=== PATIENT | male | born 1990 | race Caucasian/White ===

== ENCOUNTER 2018-01-22 07:03 | Emergency (ER) | payer SELFPAY ==
[2018-01-22 07:59] LABS: Absolute Lymphocytes (CBC) 2.3 K/uL (0.7-4.9); Absolute Monocytes 0.5 K/uL (0.1-1.3); Absolute Neutrophil 3.3 K/uL (1.8-8.0); Basophils % 0.5 % (0-1.3); Eosinophils % 2.8 % (0-4.4); Hematocrit 44.8 % (39.6-49.0); MCH 28.9 pg (27.0-35.0); MCV 85.8 fL (80-100); MPV 7.6 fL (7.6-11.3); RBC Red Blood Cell Count 5.22 M/uL (4.33-5.43)
[2018-01-22 08:08] LABS: BUN Blood Urea Nitrogen 16 mg/dL (6-20); Bicarbonate 29 mEq/L (21-31); Glucose Level 105 mg/dL (65-120); Potassium 3.7 mEq/L (3.6-5.0); Sodium Level 141 mEq/L (135-145)
--- NOTE | 2018-01-22 08:24 | RAD REPORT ---
EXAM DESCRIPTION: Noah Benitez (2 Views)01/22/2018 8:14 am CLINICAL HISTORY: Cough COMPARISON: 2009 FINDINGS: The lungs appear clear of acute infiltrate. The heart is normal size. Mild pleural thicke eleuterio may be present on the lateral view IMPRESSION: No acute abnormalities displayed
--- NOTE | 2018-01-22 08:27 | EDPHYS ---
Physician Documentation [facility] Name: Nain Caballero Age: 28 yrs Sex: Male : 1990 Arrival Date: 01/22/2018 Time: 07:07 Bed 5 Private MD: ED Physician Jose Chen HPI: 01/22 07:33 This 28 yrs old Male presents to ER via Wheelchair with complaints of Chest rn Pain. 07:33 The patient or guardian reports chest pain that is located primarily in the anterior rn chest wall. The patient or guardian reports chest pain that is located primarily in the anterior chest wall, right. The pain does not radiate. The chest pain is described as sharp, stabbing. Duration: The patient or guardian reports a single episode, that is still ongoing. Severity of pain: At its worst the pain was mild in the emergency department the pain is unchanged. The patient has experienced a previous episode. The patient has not recently seen a physician. Reports chest pain, right sided, non-radiating, no fever/cough/sob, reports constant for 1 week, similar symptoms in past, was a spontaneous pneumothorax, required a chest tube, states not getting better so came in for eval.. Historical: - Allergies: 07:32 Clindamycin; iw - Home Meds: 07:32 None [Active]; iw - PMHx: 07:32 Pneumothorax; iw - PSHx: 07:32 right wrist surgery; iw - Immunization history:: Adult Immunizations. - Family history:: not pertinent. - Social history:: Smoking status: Patient/guardian denies using tobacco. - Hospitalizations: : No recent hospitalization is reported. ROS: 07:34 Constitutional: Negative for fever, chills, and weight loss, Eyes: Negative for injury, rn pain, redness, and discharge, Neck: Negative for injury, pain, and swelling, Cardiovascular: Negative for palpitations, and edema, Respiratory: Negative for shortness of breath, cough, wheezing Abdomen/GI: Negative for abdominal pain, nausea, vomiting, diarrhea, and constipation, Back: Negative for injury and pain, MS/Extremity: Negative for injury and deformity, Skin: Negative for injury, rash, and discoloration, Neuro: Negative for headache, weakness, numbness, tingling, and seizure. Exam: 07:34 Constitutional: This is a well developed, well nourished patient who is awake, alert, rn and in no acute distress. Head/Face: Normocephalic, atraumatic. Neck: Trachea midline, no thyromegaly or masses palpated, and no cervical lymphadenopathy. Supple, full range of motion without nuchal rigidity, or vertebral point tenderness. No Meningismus. Cardiovascular: Regular rate and rhythm with a normal S1 and S2. No gallops, murmurs, or rubs. Normal PMI, no JVD. No pulse deficits. Respiratory: Lungs have equal breath sounds bilaterally, clear to auscultation and percussion. No rales, rhonchi or wheezes noted. No increased work of breathing, no retractions or nasal flaring. Abdomen/GI: Soft, non-tender, with normal bowel sounds. No distension or tympany. No guarding or rebound. No evidence of tenderness throughout. MS/ Extremity: Pulses equal, no cyanosis. Neurovascular intact. Full, normal range of motion. Equal circumference. Neuro: Awake and alert, GCS 15, oriented to person, place, time, and situation. Cranial nerves II-XII grossly intact. Motor strength 5/5 in all extremities. Sensory grossly intact. Cerebellar exam normal. Normal gait. Vital Signs: 07:33 BP 138 / 92; Pulse 86; Resp 18 S; Temp 98.2; Pulse Ox 99% on R/A; Weight 102.06 kg; iw Height 6 ft. 1 in. (185.42 cm); Pain 7/10; 08:45 BP 127 / 89; Pulse 81; Resp 18; Temp 97.9; Pulse Ox 98% on R/A; ph 07:33 Body Mass Index 29.68 (102.06 kg, 185.42 cm) iw MDM: 07:27 Patient medically screened. rn 08:26 Differential diagnosis: acute pericarditis, anxiety, chest wall pain, costochondritis, rn gastroesophageal reflux disease (GERD), pericarditis, pleurisy, pneumothorax. Data reviewed: vital signs, nurses notes, lab test result(s), EKG, radiologic studies, plain films, and as a result, I will discharge patient. Counseling: I had a detailed discussion with the patient and/or guardian regarding: the historical points, exam findings, and any diagnostic results supporting the discharge/admit diagnosis, lab results, radiology results, the need for outpatient follow up, to return to the emergency department if symptoms worsen or persist or if there are any questions or concerns that arise at home. Special discussion: Based on the patient's history, exam, and Dx evaluation, there is no indication for emergent intervention or inpatient Tx. It is understood by the patient/guardian that if the Sx's persist or worsen they need to return immediately for re-evaluation. I discussed with the patient/guardian in detail that at this point there is no indication for admission to the hospital. It is understood, however, that if the symptoms persist or worsen the patient needs to return immediately for re-evaluation. 01/22 07:32 Order name: Basic Metabolic Panel; Complete Time: 08:18 rn 01/22 07:32 Order name: CBC with Diff; Complete Time: 08:18 rn 01/22 07:32 Order name: Troponin (emerg Dept Use Only); Complete Time: 08:18 rn 01/22 07:32 Order name: EKG; Complete Time: 07:33 rn 01/22 07:32 Order name: Cardiac monitoring; Complete Time: 08: rn 01/22 07:32 Order name: XRAY Chest Pa And Lat (2 Views); Complete Time: 08:25 rn 01/22 07:32 Order name: EKG - Nurse/Tech; Complete Time: 08: rn 01/22 07:32 Order name: IV Saline Lock; Complete Time: 08: rn 01/22 07:32 Order name: Labs collected and sent; Complete Time: 08: rn 01/22 07:32 Order name: O2 Per Protocol; Complete Time: 08: rn 01/22 07:32 Order name: O2 Sat Monitoring; Complete Time: 08:09 rn Administered Medications: No medications were administered Disposition: 01/22/18 08:27 Discharged to Home. Impression: Chest pain, unspecified. - Condition is Stable. - Discharge Instructions: Nonspecific Chest Pain. - Work release form, Medication Reconciliation Form, Thank You Letter, Antibiotic Education, Prescription Opioid Use form. - Follow up: Private Physician; When: As needed; Reason: Recheck today's complaints, Re-evaluation by your physician. - Problem is new. - Symptoms have improved. Signatures: Dispatcher [employer] Kia Mackey RN RN iw Nieto, Roman, MD MD rn Hall, Patricia, RN RN ph Corrections: (The following items were deleted from the chart) 09:09 08:27 01/22/2018 08:27 Discharged to Home. Impression: Chest pain, unspecified. ph Condition is Stable. Forms are Medication Reconciliation Form, Thank You Letter, Antibiotic Education, Prescription Opioid Use. Follow up: Private Physician; When: As needed; Reason: Recheck today's complaints, Re-evaluation by your physician. Problem is new. Symptoms have improved. rn
--- NOTE | 2018-01-22 08:27 | ER ---
Nurse's Notes [facility] Name: Nain Caballero Age: 28 yrs Sex: Male : 1990 Arrival Date: 01/22/2018 Time: 07:07 Bed 5 Private MD: Diagnosis: Chest pain, unspecified Presentation: 01/22 07:31 Presenting complaint: Patient states: has had right sided chest pain X 1 week, iw described as sharp, hx of left sided pneumothorax, also c/o mild SOB and cough, pain is aggravated by movement. Transition of care: patient was not received from another setting of care. Onset of symptoms was January 22, 2018. Initial Sepsis Screen: Does the patient meet any 2 criteria? No. Patient's initial sepsis screen is negative. Does the patient have a suspected source of infection? No. Patient's initial sepsis screen is negative. Care prior to arrival: None. 07:31 Method Of Arrival: Wheelchair iw 07:31 Acuity: SRAVAN 3 iw Historical: - Allergies: 07:32 Clindamycin; iw - Home Meds: 07:32 None [Active]; iw - PMHx: 07:32 Pneumothorax; iw - PSHx: 07:32 right wrist surgery; iw - Immunization history:: Adult Immunizations. - Family history:: not pertinent. - Social history:: Smoking status: Patient/guardian denies using tobacco. - Hospitalizations: : No recent hospitalization is reported. Screenin:58 Abuse screen: Denies threats or abuse. Denies injuries from another. Nutritional ph screening: No deficits noted. Tuberculosis screening: No symptoms or risk factors identified. Fall Risk None identified. Assessment: 07:45 General: Appears in no apparent distress. comfortable, slender, well groomed, Behavior ph is calm, cooperative, appropriate for age, Denies fever, feeling ill. Pain: Complains of pain in anterior aspect of right upper chest and right breast Pain does not radiate. Quality of pain is described as sharp, stabbing, Pain began 1 week ago. Neuro: Level of Consciousness is awake, alert, obeys commands, Oriented to person, place, time, situation. 07:45 Cardiovascular: Reports chest pain, shortness of breath, Denies nausea, vomiting, Chest ph pain quality is sharp, stabbing, is located in right anterior chest wall is aggravated by breathing. Respiratory: Reports shortness of breath pain with movement pain with respiration. GI: No signs and/or symptoms were reported involving the gastrointestinal system. Derm: Skin is intact, is healthy with good turgor, Skin is pink, warm \T\ dry. Musculoskeletal: Circulation, motion, and sensation intact. Range of motion: intact in all extremities. 09:05 Reassessment: Patient appears in no apparent distress at this time. Patient and/or ph family updated on plan of care and expected duration. Pain level reassessed. Patient is alert, oriented x 3, equal unlabored respirations, skin warm/dry/pink. Pt given work note and discharged home. Vital Signs: 07:33 BP 138 / 92; Pulse 86; Resp 18 S; Temp 98.2; Pulse Ox 99% on R/A; Weight 102.06 kg; iw Height 6 ft. 1 in. (185.42 cm); Pain 7/10; 08:45 BP 127 / 89; Pulse 81; Resp 18; Temp 97.9; Pulse Ox 98% on R/A; ph 07:33 Body Mass Index 29.68 (102.06 kg, 185.42 cm) iw ED Course: 07:07 Patient arrived in ED. mr 07:27 Jose Chen MD is Attending Physician. rn 07:30 Inserted saline lock: 20 gauge in right antecubital area, using aseptic technique. ag Blood collected. 07:32 Triage completed. iw 07:58 Lizette Funk, RN is Primary Nurse. ph 08:04 Patient moved to radiology via wheelchair. jb2 08:07 EKG done, by mental health tech. reviewed by Jose Chen MD. tc 08:09 Arm band placed on. ph 08:10 Patient has correct armband on for positive identification. Placed in gown. Bed in low ph position. Call light in reach. Side rails up X 1. court monitor on. Pulse ox on. NIBP on. Warm blanket given. 08:11 X-ray completed. Patient tolerated procedure well. Patient moved back from radiology. jb2 08:12 XRAY Chest Pa And Lat (2 Views) In Process Unspecified. EDMS 08:15 Patient maintains SpO2 saturation greater than 95% on room air. ph 09:08 No provider procedures requiring assistance completed. IV discontinued, intact, ph bleeding controlled, No redness/swelling at site. Pressure dressing applied. Administered Medications: No medications were administered Outcome: : Discharge ordered by . rn 09:08 Discharged to home ambulatory. ph : Condition: good :08 Discharge instructions given to patient, Instructed on discharge instructions, follow up and referral plans. Demonstrated understanding of instructions, follow-up care. 09: Patient left the ED. ph Signatures: Dispatcher [employer] EDUT Kennedi Leon, Andrea jb2 Kia Lewis, Jose Mccormick RN, MD MD rn Callis, Tiffany, gunstock spray unit feeder EKG Ttc Kristan Hutchins Patricia, RN RN ph Corrections: (The following items were deleted from the chart) 09:11 09:11 BP 127 / 89; Pulse 81bpm; Resp 18bpm; Pulse Ox 98% RA; Temp 97.9F; ph ph
--- NOTE | 2018-01-22 13:28 | EKG ---
Test Date: 2018-01-22 Test Time: 07:59:11 Hearth Feeder: RYAN MEASUREMENT RESULTS: Intervals: Rate: 71 NE: 152 QRSD: 86 QT: 370 QTc: 402 [place]: P: 34 NE: 152 QRS: 83 T: 60 INTERPRETIVE STATEMENTS: Normal sinus rhythm Normal ECG Compared to ECG 11/11/2009 11:07:27 Right-axis deviation no longer present Electronically Signed On 01-22-18 13:27:58 CDT by Ryan Walters
== END 2018-01-22 09:09 | disposition home or self-care (01) ==
LOC: ER 07:03
DX: R07.9 Chest pain, unspecified (principal); Z88.3 Allergy status to other anti-infective agents
CPT/HCPCS: 36415; 71046; 80048; 84484; 85025; 93005; 99285

== ENCOUNTER 2018-11-04 21:06 | Emergency (ER) | payer SELFPAY ==
[2018-11-04] MEDS ORDERED: AMOX/K CLAV 875 MG TAB ONE (21:54)
[2018-11-04] MEDS ORDERED: HYDROCODONE/APAP 5/325 MG TAB ONE (21:54)
--- NOTE | 2018-11-04 22:04 | ER ---
Nurse's Notes [facility] Name: Nain Caballero Age: 28 yrs Sex: Male : 1990 Arrival Date: 11/04/2018 Time: 21:07 Bed 5 Private MD: Diagnosis: Cracked tooth-Pain, right upper molar Presentation: 11/04 21:18 Presenting complaint: Patient states: I broke a tooth on the upper right about 2 weeks la1 ago and it just started hurting on . I have plans to go see a dentist but I cant take the pain, pt reports taking ibuprofen and acetaminophen at home without relieft. Transition of care: patient was not received from another setting of care. Onset of symptoms was November 04, 2018. Risk Assessment: Do you want to hurt yourself or someone else? Patient reports no desire to harm self or others. Initial Sepsis Screen: Does the patient meet any 2 criteria? No. Patient's initial sepsis screen is negative. Does the patient have a suspected source of infection? No. Patient's initial sepsis screen is negative. Care prior to arrival: None. 21:18 Method Of Arrival: Ambulatory la1 21:18 Acuity: SRAVAN 5 la1 Historical: - Allergies: 21:20 Clindamycin; la1 - PMHx: 21:20 Pneumothorax; la1 - Immunization history:: Adult Immunizations up to date. - Social history:: Smoking status: Patient/guardian denies using tobacco, but has a distant history of tobacco abuse. - Ebola Screening: : No symptoms or risks identified at this time. Screenin:34 Abuse screen: Denies threats or abuse. Denies injuries from another. Nutritional tl1 screening: No deficits noted. Tuberculosis screening: No symptoms or risk factors identified. Fall Risk None identified. Assessment: 21:32 General: Appears uncomfortable, Behavior is calm, cooperative, appropriate for age. tl1 Pain: Complains of pain in upper right second molar Pain currently is 10 out of 10 on a pain scale. Quality of pain is described as aching, sharp, throbbing. Neuro: Level of Consciousness is awake, alert, obeys commands, Oriented to person, place, time, situation. Cardiovascular: No deficits noted. Respiratory: Airway is patent Trachea midline Respiratory effort is even, unlabored, Breath sounds are clear bilaterally. GI: No signs and/or symptoms were reported involving the gastrointestinal system. : No signs and/or symptoms were reported regarding the genitourinary system. EENT: Poor dentition noted. Dental caries noted in upper right second molar (#2) Reports pain in upper right second molar. Derm: No signs and/or symptoms reported regarding the dermatologic system. Musculoskeletal: No signs and/or symptoms reported regarding the musculoskeletal system. Vital Signs: 21:20 BP 118 / 86; Pulse 90; Resp 18; Temp 97.6; Pulse Ox 98% on R/A; Weight 104.33 kg; la1 Height 6 ft. 1 in. (185.42 cm); 21:20 Body Mass Index 30.34 (104.33 kg, 185.42 cm) la1 ED Course: 21:07 Patient arrived in ED. am2 21:19 Triage completed. la1 21:20 Arm band placed on left wrist. la1 21:20 Patient has correct armband on for positive identification. Call light in reach. Side tl1 rails up X 1. 21:23 Elias Giron PA is PHCP. cp 21:23 Elias Jackson MD is Attending Physician. cp 21:41 Latricia Garnett RN is Primary Nurse. tl1 22:02 Jony Brewer DDS is Referral Physician. cp 22:15 No provider procedures requiring assistance completed. Patient did not have IV access tl1 during this emergency room visit. Administered Medications: 21:44 Drug: HYDROcodone-acetaminophen 5 mg-325 mg 1 tabs Route: PO; tl1 22:15 Follow up: Response: No adverse reaction; No change in condition tl1 21:44 Drug: Augmentin 875 mg Route: PO; tl1 22:15 Follow up: Response: No adverse reaction; No change in condition tl1 Outcome: 22:03 Discharge ordered by . cp 22:15 Discharged to home ambulatory. tl1 22:15 Condition: good 22:15 Discharge instructions given to patient, Instructed on discharge instructions, follow up and referral plans. medication usage, Demonstrated understanding of instructions, follow-up care, medications, Prescriptions given X 3. 22:16 Patient left the ED. tl1 Signatures: Roosevelt Mosquera RN RN la1 Latricia Garnett RN RN tl1 Page, Elias, PA PA cp Motley, Brenda am2
--- NOTE | 2018-11-04 22:04 | EDPHYS ---
Physician Documentation [facility] Name: Nain Caballero Age: 28 yrs Sex: Male : 1990 Arrival Date: 11/04/2018 Time: 21:07 Bed 5 Private MD: ED Physician Elias Jackson HPI: 11/04 21:40 This 28 yrs old Male presents to ER via Ambulatory with complaints of cp Toothache. 21:40 The patient presents with broken tooth/teeth, pain. The problem is located in the upper cp right second molar (#2). Onset: The symptoms/episode began/occurred 2 day(s) ago. 21:40 Duration: The symptoms are continuous, and are steadily getting worse. cp 21:40 Associated signs and symptoms: Pertinent negatives: chills, dysphagia, fever, inability cp to eat, swelling, facial. Historical: - Allergies: 21:20 Clindamycin; la1 - PMHx: 21:20 Pneumothorax; la1 - Immunization history:: Adult Immunizations up to date. - Social history:: Smoking status: Patient/guardian denies using tobacco, but has a distant history of tobacco abuse. - Ebola Screening: : No symptoms or risks identified at this time. ROS: 21:45 Constitutional: Negative for body aches, chills, fever, poor PO intake. cp 21:45 Eyes: Negative for injury, pain, redness, and discharge. cp 21:45 ENT: Positive for dental pain, Negative for drainage from ear(s), ear pain, sore throat, difficulty swallowing, difficulty handling secretions. 21:45 Cardiovascular: Negative for chest pain. 21:45 Respiratory: Negative for cough, wheezing. 21:45 Abdomen/GI: Negative for abdominal pain, nausea, vomiting, and diarrhea. 21:45 Skin: Negative for cellulitis, rash. 21:45 Neuro: Negative for headache. 21:45 All other systems are negative. Exam: 21:50 Constitutional: The patient appears in no acute distress, alert, awake, non-toxic, well cp developed, well nourished. 21:50 Head/Face: Normocephalic, atraumatic. cp 21:50 Eyes: Periorbital structures: appear normal, Conjunctiva: normal, no exudate, no injection, Sclera: no appreciated abnormality, Lids and lashes: appear normal, bilaterally. 21:50 ENT: External ear(s): are unremarkable, Ear canal(s): are normal, clear, TM's: bulging, is not appreciated, bilaterally, dullness, bilaterally, erythema, is not appreciated, bilaterally, Nose: is normal, Mouth: Lips: moist, Oral mucosa: pink and intact, moist, Gums: normal with healthy appearance, Tongue: is normal, abscess, is not appreciated, Posterior pharynx: Airway: no evidence of obstruction, patent, Tonsils: are normal in appearance, swelling, is not appreciated, erythema, is not appreciated, exudate, is not appreciated, Dental exam: dental caries, that is mild, diffusely, fractured teeth are noted, specifically the upper right second molar (#2), pain, that is moderate, specifically in the upper right second molar (#2), Voice: is normal. 21:50 Neck: Lymph nodes: no appreciated lymphadenopathy. 21:50 Chest/axilla: Inspection: normal. 21:50 Cardiovascular: Rate: normal. 21:50 Respiratory: the patient does not display signs of respiratory distress, Respirations: normal, no use of accessory muscles, no retractions, no splinting, no tachypnea, labored breathing, is not present. 21:50 Abdomen/GI: Exam negative for discomfort, distension, guarding, Inspection: abdomen appears normal. 21:50 Skin: cellulitis, is not appreciated, no rash present. Vital Signs: 21:20 BP 118 / 86; Pulse 90; Resp 18; Temp 97.6; Pulse Ox 98% on R/A; Weight 104.33 kg; la1 Height 6 ft. 1 in. (185.42 cm); 21:20 Body Mass Index 30.34 (104.33 kg, 185.42 cm) la1 MDM: 21:23 Patient medically screened. cp 21:45 Differential diagnosis: dental caries, gingivitis, dental abscess, pericoronitis. cp 22:00 Data reviewed: vital signs, nurses notes, and as a result, I will discharge patient. cp 22:00 Counseling: I had a detailed discussion with the patient and/or guardian regarding: the cp historical points, exam findings, and any diagnostic results supporting the discharge/admit diagnosis, the need for outpatient follow up, for definitive care, a dentist, to return to the emergency department if symptoms worsen or persist or if there are any questions or concerns that arise at home. Administered Medications: 21:44 Drug: HYDROcodone-acetaminophen 5 mg-325 mg 1 tabs Route: PO; tl1 22:15 Follow up: Response: No adverse reaction; No change in condition tl1 21:44 Drug: Augmentin 875 mg Route: PO; tl1 22:15 Follow up: Response: No adverse reaction; No change in condition tl1 Disposition: 11/04/18 22:03 Discharged to Home. Impression: Cracked tooth - Pain, right upper molar. - Condition is Stable. - Discharge Instructions: Dental Pain, Diet and Dental Disease. - Prescriptions for Amoxicillin 875 mg Oral Tablet - take 1 tablet by ORAL route every 12 hours for 10 days; 20 tablet. Ibuprofen 800 mg Oral Tablet - take 1 tablet by ORAL route every 8 hours As needed take with food; 30 tablet. Tramadol 50 mg Oral Tablet - take 1 tablet by ORAL route every 8 hours as needed; 12 tablet. - Work release form, Medication Reconciliation Form, Thank You Letter, Antibiotic Education, Prescription Opioid Use form. - Follow up: Jony Brewer DDS; When: 2 - 3 days; Reason: Recheck today's complaints. - Problem is new. - Symptoms have improved. Addendum: 11/07/2018 11:23 Co-signature as Attending Physician, Elias Jackson MD I agree with the assessment and c garay plan of care. Signatures: Elias Jackson MD MD cha Attema, Lee RN RN la1 Latricia Garnett RN RN tl1 Elias Giron PA PA cp Corrections: (The following items were deleted from the chart) 11/04 22:16 22:03 11/04/2018 22:03 Discharged to Home. Impression: Cracked tooth - Pain, right tl1 upper molar. Condition is Stable. Forms are Medication Reconciliation Form, Thank You Letter, Antibiotic Education, Prescription Opioid Use. Follow up: Jony Brewer; When: 2 - 3 days; Reason: Recheck today's complaints. Problem is new. Symptoms have improved. cp
== END 2018-11-04 22:16 | disposition home or self-care (01) ==
LOC: ER 21:06
DX: K03.81 Cracked tooth (principal); Z88.3 Allergy status to other anti-infective agents
CPT/HCPCS: 99283

== ENCOUNTER 2019-02-17 22:43 | Emergency (ER) | payer SELFPAY ==
[2019-02-18] MEDS ORDERED: IBUPROFEN 400 MG TAB ONE (01:25)
[2019-02-18] MEDS ORDERED: TETANUS & DIPHTHERIA TOX,ADULT 0.5 ML VIAL ONE (01:26)
--- NOTE | 2019-02-18 01:38 | ER ---
Nurse's Notes [facility] Name: Nain Caballero Age: 29 yrs Sex: Male : 1990 Arrival Date: 02/17/2019 Time: 22:44 Bed 20 Private MD: Diagnosis: Laceration without foreign body, right foot Presentation: 02/17 23:30 Presenting complaint: Patient states: "I was fishing and was walking in knee-deep water cc3 when I accidentally stepped on something sharp that caused laceration to my right foot" Patient has laceration to his right plantar area. Transition of care: patient was not received from another setting of care. Complicating Factors: There are no complicating factors for this patient. Onset of symptoms was February 17, 2019. Risk Assessment: Do you want to hurt yourself or someone else? Patient reports no desire to harm self or others. Initial Sepsis Screen: Does the patient meet any 2 criteria? No. Patient's initial sepsis screen is negative. Does the patient have a suspected source of infection? No. Patient's initial sepsis screen is negative. Care prior to arrival: None. 23:30 Method Of Arrival: Wheelchair cc3 23:30 Acuity: SRAVAN 4 cc3 Triage Assessment: 23:30 General: Appears in no apparent distress. uncomfortable, Behavior is calm, cooperative, cc3 appropriate for age. Pain: Complains of pain in right plantar area. EENT: No signs and/or symptoms were reported regarding the EENT system. Neuro: Level of Consciousness is awake, alert, obeys commands, Oriented to person, place, time, situation, Appropriate for age. Cardiovascular: Denies chest pain, Patient's skin is warm and dry. Respiratory: Airway is patent Respiratory effort is even, unlabored, Respiratory pattern is regular, symmetrical. GI: Abdomen is round. : No signs and/or symptoms were reported regarding the genitourinary system. Derm: laceration to right plantar area. Musculoskeletal: Circulation, motion, and sensation intact. Range of motion: limited in right foot. Injury Description: Laceration sustained to right plantar area. Historical: - Allergies: 23:30 Clindamycin; cc3 - PMHx: 23:30 Pneumothorax; cc3 - PSHx: 23:30 wrist surgeries; cc3 - Immunization history:: Adult Immunizations up to date. - Social history:: Smoking status: Patient/guardian denies using tobacco, never smoked. - Ebola Screening: : No symptoms or risks identified at this time. Screenin:30 Abuse screen: Denies threats or abuse. Denies injuries from another. Nutritional cc3 screening: No deficits noted. Tuberculosis screening: No symptoms or risk factors identified. Fall Risk Ambulatory Aid- None/Bed Rest/Nurse Assist (0 pts). Gait- Normal/Bed Rest/Wheelchair (0 pts) Mental Status- Oriented to own ability (0 pts). Assessment: 23:30 Injury Description: Laceration sustained to right heel area is superficial, 0.5 to 2.5 cc3 cm long, not bleeding. 02/18 00:12 Reassessment: Patient appears in no apparent distress at this time. Patient and/or cc3 family updated on plan of care and expected duration. Pain level reassessed. Patient is alert, oriented x 3, equal unlabored respirations, skin warm/dry/pink. 01:25 Reassessment: Patient appears in no apparent distress at this time. Patient and/or cc3 family updated on plan of care and expected duration. Pain level reassessed. Patient is alert, oriented x 3, equal unlabored respirations, skin warm/dry/pink. 02:10 Reassessment: Patient appears in no apparent distress at this time. Patient and/or cc3 family updated on plan of care and expected duration. Pain level reassessed. Patient is alert, oriented x 3, equal unlabored respirations, skin warm/dry/pink. Dr. Jackson discharged the patient home with prescription given. No IV cannula in situ. Patient left ER vitally stable and ambulatory with his friend. Patient denies pain at this time. Patient states feeling better. Patient states symptoms have improved. Vital Signs: 02/17 23:30 BP 132 / 82; Pulse 100; Resp 17 S; Temp 98.8(O); Pulse Ox 98% on R/A; Weight 104.33 kg cc3 (R); Height 6 ft. 1 in. (185.42 cm) (R); 02/18 00:40 BP 130 / 73; Pulse 97; Resp 17 S; Pulse Ox 98% on R/A; cc3 01:55 BP 127 / 75; Pulse 98; Resp 16 S; Pulse Ox 99% on R/A; cc3 06/16 23:30 Body Mass Index 30.34 (104.33 kg, 185.42 cm) cc3 ED Course: 02/17 22:44 Patient arrived in ED. am2 23:30 Patient has correct armband on for positive identification. Bed in low position. Call cc3 light in reach. Side rails up X 1. Pulse ox on. NIBP on. 23:30 Arm band placed on right wrist. Patient notified of wait time. cc3 23:33 Zee Hernández is Primary Nurse. cc3 02/18 00:18 Triage completed. cc3 01:03 Elias Jackson MD is Attending Physician. farzana 01:37 Micky Euceda DPM is Referral Physician. [facility] 02:03 XRAY Foot RIGHT 3 View In Process Unspecified. EDMS 02:10 No provider procedures requiring assistance completed. Patient did not have IV access cc3 during this emergency room visit. Administered Medications: 01:15 Drug: Motrin 800 mg Route: PO; cc3 01:47 Follow up: Response: No adverse reaction; Pain is decreased cc3 01:16 Drug: Tetanus-Diphtheria Toxoid Adult 0.5 ml {Press Operator Automatic: Swing by Swing. Exp: cc3 11/24/2020. Lot #: [id number]. } Route: IM; Site: right deltoid; 01:30 Follow up: Response: No adverse reaction cc3 01:40 Drug: Doxycycline 200 mg Route: PO; cc3 01:48 Follow up: Response: No adverse reaction cc3 01:40 Drug: Bactrim (160 mg-800 mg (DS) 1 tablet Route: PO; cc3 01:48 Follow up: Response: No adverse reaction cc3 01:45 Drug: Lidocaine (2 %) 10 ml {Note: administered by Dr. Jackson.} Volume: 5 ml; Route: cc3 Infiltration; 02:00 Follow up: Response: No adverse reaction cc3 Outcome: 01:38 Discharge ordered by . farzana 02:10 Discharged to home ambulatory, with family. cc3 02:10 Condition: stable 02:10 Discharge instructions given to patient, Instructed on discharge instructions, follow up and referral plans. medication usage, Demonstrated understanding of instructions, follow-up care, medications, Prescriptions given X 3. 02:13 Patient left the ED. cc3 Signatures: Dispatcher [employer] EDMS Elias Jackson, MD MD farzana Motley, Brenda am2 Zee Hernández 3
--- NOTE | 2019-02-18 01:38 | EDPHYS ---
Physician Documentation [facility] Name: Nain Caballero Age: 29 yrs Sex: Male : 1990 Arrival Date: 02/17/2019 Time: 22:44 Bed 20 Private MD: RILEY Physician Elias Jackson HPI: 02/18 01:33 This 29 yrs old Male presents to ER via Wheelchair with complaints of farzana Laceration To Foot. 01:33 The patient has a laceration related to: playing. The laceration(s) is(are) located on farzana the right foot. Onset: The symptoms/episode began/occurred just prior to arrival. Associated signs and symptoms: The patient has no apparent associated signs or symptoms. The patient has not experienced similar symptoms in the past. Historical: - Allergies: 02/17 23:30 Clindamycin; cc3 - PMHx: 23:30 Pneumothorax; cc3 - PSHx: 23:30 wrist surgeries; cc3 - Immunization history:: Adult Immunizations up to date. - Social history:: Smoking status: Patient/guardian denies using tobacco, never smoked. - Ebola Screening: : No symptoms or risks identified at this time. ROS: 02/18 01:33 Constitutional: Negative for fever, chills, and weight loss, Eyes: Negative for injury, farzana pain, redness, and discharge, ENT: Negative for injury, pain, and discharge, Neck: Negative for injury, pain, and swelling, Cardiovascular: Negative for chest pain, palpitations, and edema, Respiratory: Negative for shortness of breath, cough, wheezing, and pleuritic chest pain, Abdomen/GI: Negative for abdominal pain, nausea, vomiting, diarrhea, and constipation, Back: Negative for injury and pain, : Negative for injury, bleeding, discharge, and swelling, Skin: Negative for injury, rash, and discoloration, Neuro: Negative for headache, weakness, numbness, tingling, and seizure, Psych: Negative for depression, anxiety, suicide ideation, homicidal ideation, and hallucinations, Allergy/Immunology: Negative for hives, rash, and allergies, Endocrine: Negative for neck swelling, polydipsia, polyuria, polyphagia, and marked weight changes, Hematologic/Lymphatic: Negative for swollen nodes, abnormal bleeding, and unusual bruising. MS/extremity: Positive for decreased range of motion, pain, tenderness, of the right foot. Exam: 01:33 Constitutional: This is a well developed, well nourished patient who is awake, alert, farzana and in no acute distress. Head/Face: Normocephalic, atraumatic. Eyes: Pupils equal round and reactive to light, extra-ocular motions intact. Lids and lashes normal. Conjunctiva and sclera are non-icteric and not injected. Cornea within normal limits. Periorbital areas with no swelling, redness, or edema. ENT: Nares patent. No nasal discharge, no septal abnormalities noted. Tympanic membranes are normal and external auditory canals are clear. Oropharynx with no redness, swelling, or masses, exudates, or evidence of obstruction, uvula midline. Mucous membranes moist. Neck: Trachea midline, no thyromegaly or masses palpated, and no cervical lymphadenopathy. Supple, full range of motion without nuchal rigidity, or vertebral point tenderness. No Meningismus. Chest/axilla: Normal chest wall appearance and motion. Nontender with no deformity. No lesions are appreciated. Cardiovascular: Regular rate and rhythm with a normal S1 and S2. No gallops, murmurs, or rubs. Normal PMI, no JVD. No pulse deficits. Respiratory: Lungs have equal breath sounds bilaterally, clear to auscultation and percussion. No rales, rhonchi or wheezes noted. No increased work of breathing, no retractions or nasal flaring. Abdomen/GI: Soft, non-tender, with normal bowel sounds. No distension or tympany. No guarding or rebound. No evidence of tenderness throughout. Back: No spinal tenderness. No costovertebral tenderness. Full range of motion. Male : Normal genitalia with no discharge or lesions. Skin: Warm, dry with normal turgor. Normal color with no rashes, no lesions, and no evidence of cellulitis. Neuro: Awake and alert, GCS 15, oriented to person, place, time, and situation. Cranial nerves II-XII grossly intact. Motor strength 5/5 in all extremities. Sensory grossly intact. Cerebellar exam normal. Normal gait. Psych: Awake, alert, with orientation to person, place and time. Behavior, mood, and affect are within normal limits. 01:33 Musculoskeletal/extremity: Extremities: noted in the heel of right foot: pain. Vital Signs: 06/16 23:30 BP 132 / 82; Pulse 100; Resp 17 S; Temp 98.8(O); Pulse Ox 98% on R/A; Weight 104.33 kg cc3 (R); Height 6 ft. 1 in. (185.42 cm) (R); 02/18 00:40 BP 130 / 73; Pulse 97; Resp 17 S; Pulse Ox 98% on R/A; cc3 01:55 BP 127 / 75; Pulse 98; Resp 16 S; Pulse Ox 99% on R/A; cc3 02/17 23:30 Body Mass Index 30.34 (104.33 kg, 185.42 cm) 3 Laceration: 01:52 Wound Repair of 2.5cm ( 1.0in ) subcutaneous laceration to heel of right foot. farzana Irregularly shaped.. Skin/tissue flap noted.. Minimal contamination.. Distal neuro/vascular/tendon intact. Anesthesia: Local anesthetic administered with 6 mls of 1% lidocaine. Wound prep: Moderate cleansing, Copious irrigation. Skin closed with none none using bulky dressing. Dressed with Neosporin, pressure dressing, non-adherent dressing. Patient tolerated well. MDM: 01:03 Patient medically screened. [facility] 01:51 Data reviewed: radiologic studies, plain films. [facility] 02/18 00:46 Order name: XRAY Foot RIGHT 3 View 02/18 00:46 Order name: Wound Care; Complete Time: 01:26 02/18 01:33 Order name: Dressing - Wound; Complete Time: 02:10 [facility] 02/18 01:33 Order name: Gloves, Sterile; Complete Time: 01:48 [facility] 02/18 01:33 Order name: Setup Suture Tray; Complete Time: 01:37 [facility] Administered Medications: 01:15 Drug: Motrin 800 mg Route: PO; cc3 01:47 Follow up: Response: No adverse reaction; Pain is decreased 3 01:16 Drug: Tetanus-Diphtheria Toxoid Adult 0.5 ml {Settlement Clerk: [employer]. Exp: cc3 11/24/2020. Lot #: [id number]. } Route: IM; Site: right deltoid; 01:30 Follow up: Response: No adverse reaction cc3 01:40 Drug: Doxycycline 200 mg Route: PO; cc3 01:48 Follow up: Response: No adverse reaction cc3 01:40 Drug: Bactrim (160 mg-800 mg (DS) 1 tablet Route: PO; cc3 01:48 Follow up: Response: No adverse reaction cc3 01:45 Drug: Lidocaine (2 %) 10 ml {Note: administered by Dr. Jackson.} Volume: 5 ml; Route: cc3 Infiltration; 02:00 Follow up: Response: No adverse reaction cc3 Disposition: 02/18/19 01:38 Discharged to Home. Impression: Laceration without foreign body, right foot. - Condition is Stable. - Discharge Instructions: Laceration Care, Adult, Laceration Care, Adult, [id number]. - Prescriptions for Tylenol- Codeine #3 300-30 mg Oral Tablet - take 2 tablets by ORAL route every 6 hours As needed; 20 tablet. Doxycycline Hyclate 100 mg Oral Tablet - take 1 tablet by ORAL route every 12 hours; 14 tablet. Bactrim DS 800- 160 mg Oral Tablet - take 1 tablet by ORAL route every 12 hours for 7 days; 14 tablet. - Medication Reconciliation Form, Thank You Letter, Antibiotic Education, Prescription Opioid Use, Work release form form. - Follow up: Private Physician; When: 2 - 3 days; Reason: Recheck today's complaints, Continuance of care, Re-evaluation by your physician. Follow up: Micky Euceda DPM; When: 2 - 3 days; Reason: Recheck today's complaints, Re-evaluation by your physician. - Problem is new. - Symptoms have improved. Signatures: Dispatcher [employer] EDElias Sandoval MD MD cha Ballard, Brenda, RN RN Zee Perez cc3 Corrections: (The following items were deleted from the chart) 01:53 01:33 Wound Repair of 2.5cm ( 1.0in ) subcutaneous laceration to heel of right foot. farzana Irregularly shaped.. Skin/tissue flap noted.. Minimal contamination.. Distal neuro/vascular/tendon intact. Anesthesia: Local anesthetic administered with 8 mls of 1% lidocaine. Wound prep: Moderate cleansing by me, Copious irrigation. Skin closed with 2 4-0 Prolene using interrupted sutures and sterile technique. Dressed with Neosporin, pressure dressing, non-adherent dressing. Patient tolerated well. farzana 02:13 01:38 02/18/2019 01:38 Discharged to Home. Impression: Laceration without foreign body, cc3 right foot. Condition is Stable. Forms are Medication Reconciliation Form, Thank You Letter, Antibiotic Education, Prescription Opioid Use. Follow up: Private Physician; When: 2 - 3 days; Reason: Recheck today's complaints, Continuance of care, Re-evaluation by your physician. Follow up: Dr. Micky Euceda; When: 2 - 3 days; Reason: Recheck today's complaints, Re-evaluation by your physician. Problem is new. Symptoms have improved. farzana
[2019-02-18] MEDS ORDERED: SMZ./TMP. 800/160 MG TABLET ONE (01:58)
[2019-02-18] MEDS ORDERED: LIDOCAINE 2% MPF 5 ML VIAL ONE (01:58)
[2019-02-18] MEDS ORDERED: DOXYCYCLINE 100 MG CAP PO ONE (01:59)
--- NOTE | 2019-02-18 08:16 | RAD REPORT ---
EXAM DESCRIPTION: RAD - Foot Right 3 View - 02/18/2019 2:01 am CLINICAL HISTORY: Right foot pain status post injury FINDINGS: No fracture or dislocation is seen Laceration involves the soft tissues of the dorsal hindfoot. Radiopaque foreign body is not seen
== END 2019-02-18 02:13 | disposition home or self-care (01) ==
LOC: ER 22:43
PROC: 0JQQ0ZZ Repair Right Foot Subcutaneous Tissue and Fascia, Open Approach (ICD-10-PCS; principal; 2019-02-17)
DX: S91.311A Laceration without foreign body, right foot, initial encounter (principal); W45.8XXA Other foreign body or object entering through skin, initial encounter; Z23 Encounter for immunization; Z88.1 Allergy status to other antibiotic agents
CPT/HCPCS: 90471; 90714; 99284

== ENCOUNTER 2019-06-16 20:27 | Emergency (ER) | payer SELFPAY ==
--- NOTE | 2019-06-16 21:05 | EDPHYS ---
Physician Documentation [facility] Name: Nain Caballero Age: 29 yrs Sex: Male : 1990 Arrival Date: 06/16/2019 Time: 20:35 Bed 17 Private MD: ED Physician José Miguel Thompson HPI: 06/16 21:07 This 29 yrs old Male presents to ER via Ambulatory with complaints of Hand snw Pain. 21:07 The patient or guardian reports injury, bite. The complaints affect the dorsum of right snw hand. Onset: The symptoms/episode began/occurred at 14:30, and became worse. Severity of symptoms: At their worst the symptoms were moderate, severe, just prior to arrival. The patient has not experienced similar symptoms in the past. The patient has not recently seen a physician. Historical: - Allergies: 20:37 Clindamycin; la1 - PMHx: 20:37 Pneumothorax; la1 - Immunization history:: Adult Immunizations up to date. - Social history:: Smoking status: Patient/guardian denies using tobacco. - Ebola Screening: : No symptoms or risks identified at this time. ROS: 21:07 Constitutional: Negative for fever, chills, and weight loss, Eyes: Negative for injury, snw pain, redness, and discharge, ENT: Negative for injury, pain, and discharge, Neck: Negative for injury, pain, and swelling, Cardiovascular: Negative for chest pain, palpitations, and edema, Respiratory: Negative for shortness of breath, cough, wheezing, and pleuritic chest pain, Abdomen/GI: Negative for abdominal pain, nausea, vomiting, diarrhea, and constipation, Back: Negative for injury and pain, : Negative for injury, bleeding, discharge, and swelling, MS/Extremity: Negative for injury and deformity, Neuro: Negative for headache, weakness, numbness, tingling, and seizure, Psych: Negative for depression, anxiety, suicide ideation, homicidal ideation, and hallucinations. 21:07 Skin: Positive for insect bite to dorsum of right hand, mild erythema, + stinging pain. Exam: 21:05 Constitutional: This is a well developed, well nourished patient who is awake, alert, snw and in no acute distress. Head/Face: Normocephalic, atraumatic. Eyes: Pupils equal round and reactive to light, extra-ocular motions intact. Lids and lashes normal. Conjunctiva and sclera are non-icteric and not injected. Cornea within normal limits. Periorbital areas with no swelling, redness, or edema. ENT: Nares patent. No nasal discharge, no septal abnormalities noted. Tympanic membranes are normal and external auditory canals are clear. Oropharynx with no redness, swelling, or masses, exudates, or evidence of obstruction, uvula midline. Mucous membranes moist. Neck: Trachea midline, no thyromegaly or masses palpated, and no cervical lymphadenopathy. Supple, full range of motion without nuchal rigidity, or vertebral point tenderness. No Meningismus. Chest/axilla: Normal chest wall appearance and motion. Nontender with no deformity. No lesions are appreciated. Cardiovascular: Regular rate and rhythm with a normal S1 and S2. No gallops, murmurs, or rubs. Normal PMI, no JVD. No pulse deficits. Respiratory: Lungs have equal breath sounds bilaterally, clear to auscultation and percussion. No rales, rhonchi or wheezes noted. No increased work of breathing, no retractions or nasal flaring. Abdomen/GI: Soft, non-tender, with normal bowel sounds. No distension or tympany. No guarding or rebound. No evidence of tenderness throughout. Back: No spinal tenderness. No costovertebral tenderness. Full range of motion. MS/ Extremity: Pulses equal, no cyanosis. Neurovascular intact. Full, normal range of motion. Neuro: Awake and alert, GCS 15, oriented to person, place, time, and situation. Cranial nerves II-XII grossly intact. Motor strength 5/5 in all extremities. Sensory grossly intact. Cerebellar exam normal. Normal gait. Psych: Awake, alert, with orientation to person, place and time. Behavior, mood, and affect are within normal limits. 21:05 Skin: Appearance: Color: normal in color, injury, bite(s), superficial, of the right hand, minimal erythema. Vital Signs: 20:37 BP 133 / 93; Pulse 96; Resp 16; Temp 97.4; Pulse Ox 100% on R/A; Weight 102.06 kg; la1 Height 6 ft. 1 in. (185.42 cm); 21:20 BP 130 / 89; Pulse 93; Resp 16 S; Pulse Ox 100% on R/A; cc3 20:37 Body Mass Index 29.68 (102.06 kg, 185.42 cm) la1 MDM: 20:49 Patient medically screened. snw 21:06 Data reviewed: vital signs, nurses notes. Data interpreted: Pulse oximetry: on room air snw is 100 %. Interpretation: normal. Counseling: I had a detailed discussion with the patient and/or guardian regarding: the historical points, exam findings, and any diagnostic results supporting the discharge/admit diagnosis, the need for outpatient follow up, to return to the emergency department if symptoms worsen or persist or if there are any questions or concerns that arise at home. Special discussion: I have referred the patient to see his PCP for further evaluation of high blood pressure. Based on the history and exam findings, there is no indication for further emergent testing or inpatient evaluation. I discussed with the patient/guardian the need to see the orthopedic surgeon for further evaluation of the symptoms. I discussed with the patient/guardian the need to see the primary care provider for further evaluation of the symptoms. Administered Medications: 21:10 Drug: ZyrTEC - Cetirizine 10 mg Route: PO; cc3 21:20 Follow up: Response: No adverse reaction cc3 21:15 Drug: TORadol 30 mg Route: IM; Site: right gluteus; cc3 21:20 Follow up: Response: No adverse reaction cc3 21:17 Drug: Bactroban Ointment 2 % 1 application {Note: dorsum of right hand.} Route: cc3 Topical; Site: affected area; 21:20 Follow up: Response: No adverse reaction cc3 Disposition: 22:51 Co-signature as Attending Physician, José Miguel Thompson MD. Disposition: 06/16/19 21:04 Discharged to Home. Impression: Pain in right hand, Irritant contact dermatitis. - Condition is Stable. - Discharge Instructions: Insect Bite, Contact Dermatitis, Hypertension, Cryotherapy, [id number], Heat Therapy, Hand Pain. - Prescriptions for Mobic 7.5 mg Oral Tablet - take 1 tablet by ORAL route once daily take with food; 20 tablet. Zyrtec 10 mg Oral Tablet - take 1 tablet by ORAL route once daily As needed; 20 tablet. - Medication Reconciliation Form, Thank You Letter, Antibiotic Education, Prescription Opioid Use form. - Follow up: Private Physician; When: 2 - 3 days; Reason: Recheck today's complaints, Continuance of care, Re-evaluation by your physician. Follow up: Emergency Department; When: As needed; Reason: Worsening of condition. Signatures: Rima Washington, PEPPER-C GRADING CLERK-[employer] Roosevelt Mosquera, RN RN la1 José Miguel Thompson MD MD Zee Hernández cc3 Corrections: (The following items were deleted from the chart) 21:04 21:04 06/16/2019 21:04 Discharged to Home. Impression: Pain in right hand. Condition is snw Stable. Forms are Medication Reconciliation Form, Thank You Letter, Antibiotic Education, Prescription Opioid Use. Follow up: Private Physician; When: 2 - 3 days; Reason: Recheck today's complaints, Continuance of care, Re-evaluation by your physician. Follow up: Emergency Department; When: As needed; Reason: Worsening of condition. snw 21:43 21:04 06/16/2019 21:04 Discharged to Home. Impression: Pain in right hand; Irritant cc3 contact dermatitis. Condition is Stable. Forms are Medication Reconciliation Form, Thank You Letter, Antibiotic Education, Prescription Opioid Use. Follow up: Private Physician; When: 2 - 3 days; Reason: Recheck today's complaints, Continuance of care, Re-evaluation by your physician. Follow up: Emergency Department; When: As needed; Reason: Worsening of condition. snw
--- NOTE | 2019-06-16 21:05 | ER ---
Nurse's Notes [facility] Name: Nain Caballero Age: 29 yrs Sex: Male : 1990 Arrival Date: 06/16/2019 Time: 20:35 Bed 17 Private MD: Diagnosis: Pain in right hand;Irritant contact dermatitis Presentation: 06/16 20:36 Presenting complaint: Patient states: at 1500 I was doing work outside and it felt like la1 something bit my hand. The pain is getting worse in the area and I think I see a puncture rafael. Transition of care: patient was not received from another setting of care. Onset of symptoms was June 16, 2019. Risk Assessment: Do you want to hurt yourself or someone else? Patient reports no desire to harm self or others. Initial Sepsis Screen: Does the patient meet any 2 criteria? No. Patient's initial sepsis screen is negative. Does the patient have a suspected source of infection? No. Patient's initial sepsis screen is negative. Care prior to arrival: None. 20:36 Method Of Arrival: Ambulatory la1 20:36 Acuity: SRAVAN 4 la1 Triage Assessment: 20:41 General: Appears in no apparent distress. uncomfortable, Behavior is calm, cooperative, cc3 appropriate for age. Pain: Complains of pain in dorsum of right hand. Historical: - Allergies: 20:37 Clindamycin; la1 - PMHx: 20:37 Pneumothorax; la1 - Immunization history:: Adult Immunizations up to date. - Social history:: Smoking status: Patient/guardian denies using tobacco. - Ebola Screening: : No symptoms or risks identified at this time. Screenin:41 Abuse screen: Denies threats or abuse. Denies injuries from another. Nutritional cc3 screening: No deficits noted. Tuberculosis screening: No symptoms or risk factors identified. Fall Risk Ambulatory Aid- None/Bed Rest/Nurse Assist (0 pts). Gait- Normal/Bed Rest/Wheelchair (0 pts) Mental Status- Oriented to own ability (0 pts). Assessment: 20:41 General: Appears in no apparent distress. uncomfortable, Behavior is calm, cooperative, cc3 appropriate for age. Pain: Complains of pain in dorsum of right hand. Neuro: Level of Consciousness is awake, alert, obeys commands, Oriented to person, place, time, situation, Appropriate for age. Cardiovascular: Denies chest pain, Capillary refill < 3 seconds in bilateral fingers Patient's skin is warm and dry. Respiratory: Airway is patent Respiratory effort is even, unlabored, Respiratory pattern is regular, symmetrical. GI: Abdomen is round non-distended. : No signs and/or symptoms were reported regarding the genitourinary system. EENT: No signs and/or symptoms were reported regarding the EENT system. Derm: Skin is intact, is healthy with good turgor, Skin is pink, warm \T\ dry. normal. Musculoskeletal: Reports pain in dorsum of right hand. 21:25 Reassessment: Patient appears in no apparent distress at this time. Patient and/or cc3 family updated on plan of care and expected duration. Pain level reassessed. Patient is alert, oriented x 3, equal unlabored respirations, skin warm/dry/pink. KOMAL Abarca discharged the patient sandra ewith prescriptions given. No IV cannula in situ. Patient left ER vitally stable and ambulatory. No valuables left in the patient's room. Patient denies pain at this time. Patient states feeling better. Patient states symptoms have improved. Vital Signs: 20:37 BP 133 / 93; Pulse 96; Resp 16; Temp 97.4; Pulse Ox 100% on R/A; Weight 102.06 kg; la1 Height 6 ft. 1 in. (185.42 cm); 21:20 BP 130 / 89; Pulse 93; Resp 16 S; Pulse Ox 100% on R/A; cc3 20:37 Body Mass Index 29.68 (102.06 kg, 185.42 cm) la1 ED Course: 20:35 Patient arrived in ED. la1 20:36 Triage completed. la1 20:37 Arm band placed on right wrist. la1 20:41 Zee Hernández is Primary Nurse. cc3 20:41 Patient has correct armband on for positive identification. Bed in low position. Call cc3 light in reach. Side rails up X 1. Pulse ox on. NIBP on. 20:49 Rima Washington FNP-C is PHCP. snw 20:49 José Miguel Thompson MD is Attending Physician. snw 21:25 No provider procedures requiring assistance completed. Patient did not have IV access cc3 during this emergency room visit. Administered Medications: 21:10 Drug: ZyrTEC - Cetirizine 10 mg Route: PO; cc3 21:20 Follow up: Response: No adverse reaction cc3 21:15 Drug: TORadol 30 mg Route: IM; Site: right gluteus; cc3 21:20 Follow up: Response: No adverse reaction cc3 21:17 Drug: Bactroban Ointment 2 % 1 application {Note: dorsum of right hand.} Route: cc3 Topical; Site: affected area; 21:20 Follow up: Response: No adverse reaction cc3 Outcome: 21:04 Discharge ordered by MD. carr 21:25 Discharged to home ambulatory. cc3 21:25 Condition: stable 21:25 Discharge instructions given to patient, Instructed on discharge instructions, follow up and referral plans. medication usage, Demonstrated understanding of instructions, follow-up care, medications, Prescriptions given X 2. 21:43 Patient left the ED. cc3 Signatures: Rima Washington FNP-C TAFFY PULLER-Toniw Roosevelt Mosquera RN RN la1 Zee Hernández cc3
[2019-06-16] MEDS ORDERED: CETIRIZINE HCL 5 MG TABLET ONE (21:10)
[2019-06-16] MEDS ORDERED: MUPIROCIN 2% OINT 22GM TUBE TOP ONE (21:11)
[2019-06-16] MEDS ORDERED: KETOROLAC 30 MG/ML INJ ONE (21:11)
[2019-06-16 21:47] VITALS: BP 133/93; TEMP 97.4; O2SAT 100
== END 2019-06-16 21:43 | disposition home or self-care (01) ==
LOC: ER 20:27
DX: L24.9 Irritant contact dermatitis, unspecified cause (principal); Z88.3 Allergy status to other anti-infective agents
CPT/HCPCS: 96372; 99283

== ENCOUNTER 2020-08-11 22:41 | Emergency (ER) | payer BC, SELFPAY ==
[2020-08-11 23:59] LABS: Absolute Lymphocytes (CBC) 2.1 K/uL (0.7-4.9); Basophils % 0.4 % (0-1.3); Hematocrit 44.2 % (39.6-49.0); Lymphocytes % 22.6 % (15.3-44.8); MPV 7.8 fL (7.6-11.3); RBC Red Blood Cell Count 5.26 M/uL (4.33-5.43)
[2020-08-11] MEDS ORDERED: SMZ./TMP. 800/160 MG TABLET ONE (23:59)
[2020-08-12] MEDS ORDERED: VANCOMYCIN 1 GM/VIAL ONE
[2020-08-12] MEDS ORDERED: MORPHINE 2 MG/ML SYR ONE
[2020-08-12] MEDS ORDERED: DOXYCYCLINE 100 MG CAP PO ONE
[2020-08-12] MEDS ORDERED: ONDANSETRON 4 MG/2 ML VIAL ONE
[2020-08-12] MEDS ORDERED: NA CHLORIDE 0.9% 1,000 ML ONE (00:01)
[2020-08-12] MEDS ORDERED: NA CHLORIDE 0.9% 500 ML ONE (00:01)
[2020-08-12 00:09] LABS: ALT/SGPT 47 U/L (12-78); AST/SGOT 20 U/L (15-37); Albumin 4.1 g/dL (3.4-5.0); Alkaline Phosphatase 93 U/L (45-117); BUN Blood Urea Nitrogen 16 mg/dL (7-18); Bicarbonate 30 mmol/L (21-32); Bilirubin Total 0.4 mg/dL (0.2-1.0); Glucose Level 78 mg/dL (74-106); Potassium 3.7 mmol/L (3.5-5.1); Protein, Total 7.6 g/dL (6.4-8.2); Sodium Level 142 mmol/L (136-145)
--- NOTE | 2020-08-12 00:14 | EDPHYS ---
Physician Documentation [facility] Name: Nain Caballero Age: 30 yrs Sex: Male : 1990 Arrival Date: 08/11/2020 Time: 22:45 Bed 27 Private MD: ED Physician Elias Jackson HPI: 08/11 23:29 This 30 yrs old Male presents to ER via Wheelchair with complaints of Foot farzana Pain. 23:29 The patient presents with decreased range of motion, pain, swelling, tenderness. The farzana complaints affect the right foot. Context: The problem was sustained at an unknown location. Onset: The symptoms/episode began/occurred 2 day(s) ago. Modifying factors: The symptoms are alleviated by nothing, the symptoms are aggravated by weight bearing, movement. Associated signs and symptoms: Pertinent positives: of the lateral aspect of right toes and dorsum of right foot, swelling, warmth. Severity of symptoms: At their worst the symptoms were moderate, in the emergency department the symptoms are unchanged. The patient has not experienced similar symptoms in the past. Historical: - Allergies: 23:02 Clindamycin; mg2 - Home Meds: 23:02 None [Active]; mg2 - PMHx: 23:02 Pneumothorax; mg2 - PSHx: 23:02 wrist sx; mg2 - Immunization history:: Flu vaccine is not up to date. - Social history:: Smoking status: Patient reports the use of cigarette tobacco products, Patient/guardian denies using alcohol, street drugs, IV drugs. - Family history:: not pertinent. ROS: 23:29 Constitutional: Negative for fever, chills, and weight loss, Eyes: Negative for injury, farzana pain, redness, and discharge, ENT: Negative for injury, pain, and discharge, Neck: Negative for injury, pain, and swelling, Cardiovascular: Negative for chest pain, palpitations, and edema, Respiratory: Negative for shortness of breath, cough, wheezing, and pleuritic chest pain, Abdomen/GI: Negative for abdominal pain, nausea, vomiting, diarrhea, and constipation, Back: Negative for injury and pain, : Negative for injury, bleeding, discharge, and swelling, Skin: Negative for injury, rash, and discoloration, Neuro: Negative for headache, weakness, numbness, tingling, and seizure, Psych: Negative for depression, anxiety, suicide ideation, homicidal ideation, and hallucinations, Allergy/Immunology: Negative for hives, rash, and allergies, Endocrine: Negative for neck swelling, polydipsia, polyuria, polyphagia, and marked weight changes, Hematologic/Lymphatic: Negative for swollen nodes, abnormal bleeding, and unusual bruising. 23:29 MS/extremity: Positive for decreased range of motion, erythema, pain, swelling, tenderness, of the lateral aspect of right toes and dorsum of right foot. Exam: 23:29 Constitutional: This is a well developed, well nourished patient who is awake, alert, farzana and in no acute distress. Head/Face: Normocephalic, atraumatic. Eyes: Pupils equal round and reactive to light, extra-ocular motions intact. Lids and lashes normal. Conjunctiva and sclera are non-icteric and not injected. Cornea within normal limits. Periorbital areas with no swelling, redness, or edema. ENT: Nares patent. No nasal discharge, no septal abnormalities noted. Tympanic membranes are normal and external auditory canals are clear. Oropharynx with no redness, swelling, or masses, exudates, or evidence of obstruction, uvula midline. Mucous membranes moist. Neck: Trachea midline, no thyromegaly or masses palpated, and no cervical lymphadenopathy. Supple, full range of motion without nuchal rigidity, or vertebral point tenderness. No Meningismus. Chest/axilla: Normal chest wall appearance and motion. Nontender with no deformity. No lesions are appreciated. Cardiovascular: Regular rate and rhythm with a normal S1 and S2. No gallops, murmurs, or rubs. Normal PMI, no JVD. No pulse deficits. Respiratory: Lungs have equal breath sounds bilaterally, clear to auscultation and percussion. No rales, rhonchi or wheezes noted. No increased work of breathing, no retractions or nasal flaring. Abdomen/GI: Soft, non-tender, with normal bowel sounds. No distension or tympany. No guarding or rebound. No evidence of tenderness throughout. Back: No spinal tenderness. No costovertebral tenderness. Full range of motion. Male : Normal genitalia with no discharge or lesions. Skin: Warm, dry with normal turgor. Normal color with no rashes, no lesions, and no evidence of cellulitis. Neuro: Awake and alert, GCS 15, oriented to person, place, time, and situation. Cranial nerves II-XII grossly intact. Motor strength 5/5 in all extremities. Sensory grossly intact. Cerebellar exam normal. Normal gait. Psych: Awake, alert, with orientation to person, place and time. Behavior, mood, and affect are within normal limits. 23:29 Musculoskeletal/extremity: ROM: intact in all extremities, full active range of motion, full passive range of motion, Circulation is intact in all extremities. Sensation intact. Compartment Syndrome exam of affected extremity: is normal. DVT Exam: negative Homans' sign noted on exam, no appreciated bluish discoloration, pain, swelling, tenderness, erythema, increased warmth. Vital Signs: 22:58 BP 136 / 77; Resp 18; Temp 98.6; Weight 102.06 kg; Height 6 ft. 1 in. (185.42 cm); mg2 23:20 Pulse 106; Pulse Ox 98% on R/A; mg2 08/12 02:03 BP 142 / 90; Pulse 90; Resp 18; Temp 98.5; Pulse Ox 100% on R/A; Pain 2/10; mg2 08/11 22:58 Body Mass Index 29.68 (102.06 kg, 185.42 cm) mg2 MDM: 08/11 23:08 Patient medically screened. [facility] 23:31 Differential diagnosis: foreign body, cellulitis. Data reviewed: vital signs, nurses [facility] notes, lab test result(s), radiologic studies, plain films. Data interpreted: athletic monitor: not applicable for this patient encounter. Pulse oximetry: on room air is 98 %. Test interpretation: by ED physician or midlevel provider: plain radiologic studies. Counseling: I had a detailed discussion with the patient and/or guardian regarding: the historical points, exam findings, and any diagnostic results supporting the discharge/admit diagnosis, lab results, radiology results. 08/11 23:28 Order name: CBC with Diff; Complete Time: 00:10 [facility] 08/11 23:28 Order name: Comprehensive Metabolic Panel [facility] 08/11 23:28 Order name: Foot Right 3 View XRAY [facility] 08/12 00:09 Order name: Comprehensive Metabolic Panel [facility] 08/12 00:12 Order name: Post-op shoe; Complete Time: 00:31 farzana Administered Medications: 23:57 Drug: Zofran (Ondansetron) 4 mg Route: IVP; Site: right antecubital; mg2 08/12 00:34 Follow up: Response: No adverse reaction mg2 08/11 23:57 Drug: vancoMYCIN 2 grams Route: IVPB; Rate: calculated rate; Site: right antecubital; mg2 08/12 02:18 Follow up: Response: No adverse reaction; IV Status: Completed infusion mg2 08/11 23:58 Drug: NS 0.9% 1000 ml Route: IV; Rate: 1 bolus; Site: right antecubital; mg2 08/12 02:18 Follow up: Response: No adverse reaction; IV Status: Completed infusion; IV Intake: mg2 1000ml 08/11 23:58 Drug: Doxycycline 200 mg Route: PO; mg2 08/12 00:34 Follow up: Response: No adverse reaction mg2 08/11 23:58 Drug: Bactrim (160 mg-800 mg (DS) 1 tablet Route: PO; mg2 08/12 00:34 Follow up: Response: No adverse reaction mg2 08/11 23:58 Drug: morphine 2 mg Route: IVP; Site: right antecubital; mg2 08/12 00:34 Follow up: Response: No adverse reaction mg2 00:34 Not Given (patient had a shot 3 years ago): Tetanus-Diphtheria Toxoid Adult 0.5 ml IM mg2 once 01:57 Drug: TORadol 30 mg Route: IVP; Site: right antecubital; mg2 02:18 Follow up: Response: No adverse reaction mg2 Disposition: 08/12/20 00:13 Discharged to Home. Impression: Cellulitis and acute lymphangitis of other parts of limb - right foot. - Condition is Stable. - Discharge Instructions: Cellulitis, Adult, [id number], Foot Pain. - Prescriptions for Ibuprofen 600 mg Oral Tablet - take 1 tablet by ORAL route every 6 hours As needed take with food; 20 tablet. Tylenol- Codeine #3 300-30 mg Oral Tablet - take 2 tablets by ORAL route every 6 hours As needed; 20 tablet. Doxycycline Hyclate 100 mg Oral Tablet - take 1 tablet by ORAL route every 12 hours; 20 tablet. Bactrim DS 800- 160 mg Oral Tablet - take 1 tablet by ORAL route every 12 hours for 10 days; 20 tablet. - Medication Reconciliation Form, Thank You Letter, Antibiotic Education, Prescription Opioid Use, Work release form form. - Follow up: Private Physician; When: 2 - 3 days; Reason: Recheck today's complaints, Continuance of care, Re-evaluation by your physician. Follow up: José Miguel Joseph MD; When: 2 - 3 days; Reason: Recheck today's complaints, Re-evaluation by your physician. - Problem is new. - Symptoms have improved. Signatures: Dispatcher [employer] Elias Hyatt MD MD cha Gardose, Michele, RN RN mg2 Corrections: (The following items were deleted from the chart) 02:19 00:13 08/12/2020 00:13 Discharged to Home. Impression: Cellulitis and acute mg2 lymphangitis of other parts of limb - right foot. Condition is Stable. Forms are Medication Reconciliation Form, Thank You Letter, Antibiotic Education, Prescription Opioid Use. Follow up: Private Physician; When: 2 - 3 days; Reason: Recheck today's complaints, Continuance of care, Re-evaluation by your physician. Follow up: José Miguel Joseph; When: 2 - 3 days; Reason: Recheck today's complaints, Re-evaluation by your physician. Problem is new. Symptoms have improved. farzana
--- NOTE | 2020-08-12 00:14 | ER ---
Nurse's Notes [facility] Name: Nain Caballero Age: 30 yrs Sex: Male : 1990 Arrival Date: 08/11/2020 Time: 22:45 Bed 27 Private MD: Diagnosis: Cellulitis and acute lymphangitis of other parts of limb-right foot Presentation: 08/11 22:58 Chief complaint: Patient states: i think i was bitten by a spider and my right foot is mg2 swollen for 2 days. denies fever. Coronavirus screen: Client denies travel out of the [place] in the last 14 days. At this time, the client does not indicate any symptoms associated with coronavirus-19. Ebola Screen: No symptoms or risks identified at this time. Initial Sepsis Screen: Does the patient meet any 2 criteria? No. Patient's initial sepsis screen is negative. Does the patient have a suspected source of infection? No. Patient's initial sepsis screen is negative. Risk Assessment: Do you want to hurt yourself or someone else? Patient reports no desire to harm self or others. Onset of symptoms was August 2020. 22:58 Method Of Arrival: Wheelchair mg2 22:58 Acuity: SRAVAN 3 mg2 Triage Assessment: 23:02 General: Appears in no apparent distress. comfortable, Behavior is calm, cooperative. mg2 Pain: Complains of pain in right foot Quality of pain is described as aching, Pain began gradually, 2-3 days ago. Is intermittent. EENT: No signs and/or symptoms were reported regarding the EENT system. Neuro: Level of Consciousness is awake, alert, obeys commands, Oriented to person, place, time, situation. Cardiovascular: Capillary refill < 3 seconds Patient's skin is warm and dry. Respiratory: Airway is patent Respiratory effort is even, unlabored, Respiratory pattern is regular, symmetrical. GI: No signs and/or symptoms were reported involving the gastrointestinal system. : No signs and/or symptoms were reported regarding the genitourinary system. Derm: Skin is redness in the right foot noted. Musculoskeletal: Circulation, motion, and sensation intact. Capillary refill < 3 seconds. Historical: - Allergies: 23:02 Clindamycin; mg2 - Home Meds: 23:02 None [Active]; mg2 - PMHx: 23:02 Pneumothorax; mg2 - PSHx: 23:02 wrist sx; mg2 - Immunization history:: Flu vaccine is not up to date. - Social history:: Smoking status: Patient reports the use of cigarette tobacco products, Patient/guardian denies using alcohol, street drugs, IV drugs. - Family history:: not pertinent. Screenin:03 Abuse screen: Denies threats or abuse. Denies injuries from another. Nutritional mg2 screening: No deficits noted. Tuberculosis screening: No symptoms or risk factors identified. Fall Risk None identified. Assessment: 23:03 General: see triage note. mg2 08/12 00:47 Reassessment: Patient appears in no apparent distress at this time. Patient and/or mg2 family updated on plan of care and expected duration. Pain level reassessed. Patient is alert, oriented x 3, equal unlabored respirations, skin warm/dry/pink. patient for dc after completing iv abx. 02:03 Reassessment: Patient appears in no apparent distress at this time. Patient and/or mg2 family updated on plan of care and expected duration. Pain level reassessed. Patient is alert, oriented x 3, equal unlabored respirations, skin warm/dry/pink. Vital Signs: 12 22:58 BP 136 / 77; Resp 18; Temp 98.6; Weight 102.06 kg; Height 6 ft. 1 in. (185.42 cm); mg2 23:20 Pulse 106; Pulse Ox 98% on R/A; mg2 12/ 02:03 BP 142 / 90; Pulse 90; Resp 18; Temp 98.5; Pulse Ox 100% on R/A; Pain 2/10; mg2 12 22:58 Body Mass Index 29.68 (102.06 kg, 185.42 cm) mg2 ED Course: 12 22:45 Patient arrived in ED. ag3 22:58 Sundar Jc, TOBIAS is Primary Nurse. mg2 23:00 Triage completed. mg2 23:02 Arm band placed on. mg2 23:03 Patient has correct armband on for positive identification. Door closed. mg2 23:08 Elias Jackson MD is Attending Physician. [facility] 23:45 Inserted saline lock: 20 gauge in right antecubital area, using aseptic technique. mg2 Blood collected. 23:58 No provider procedures requiring assistance completed. mg2 08/12 00:01 Foot Right 3 View XRAY In Process Unspecified. EDMS 00:12 José Miguel Joseph MD is Referral Physician. farzana 02:18 IV discontinued, intact, bleeding controlled, No redness/swelling at site. Pressure mg2 dressing applied. Administered Medications: 08/11 23:57 Drug: Zofran (Ondansetron) 4 mg Route: IVP; Site: right antecubital; mg2 12 00:34 Follow up: Response: No adverse reaction mg2 08/11 23:57 Drug: vancoMYCIN 2 grams Route: IVPB; Rate: calculated rate; Site: right antecubital; mg2 12 02:18 Follow up: Response: No adverse reaction; IV Status: Completed infusion mg2 08/11 23:58 Drug: NS 0.9% 1000 ml Route: IV; Rate: 1 bolus; Site: right antecubital; mg2 08/12 02:18 Follow up: Response: No adverse reaction; IV Status: Completed infusion; IV Intake: mg2 1000ml 08/11 23:58 Drug: Doxycycline 200 mg Route: PO; mg2 08/12 00:34 Follow up: Response: No adverse reaction mg2 08/11 23:58 Drug: Bactrim (160 mg-800 mg (DS) 1 tablet Route: PO; mg2 12 00:34 Follow up: Response: No adverse reaction mg2 08/11 23:58 Drug: morphine 2 mg Route: IVP; Site: right antecubital; mg2 12 00:34 Follow up: Response: No adverse reaction mg2 00:34 Not Given (patient had a shot 3 years ago): Tetanus-Diphtheria Toxoid Adult 0.5 ml IM mg2 once 01:57 Drug: TORadol 30 mg Route: IVP; Site: right antecubital; mg2 02:18 Follow up: Response: No adverse reaction mg2 Intake: 02:18 IV: 1000ml; Total: 1000ml. mg2 Outcome: 00:13 Discharge ordered by . farzana 02:18 Discharged to home ambulatory. mg2 02:18 Condition: stable 02:18 Discharge instructions given to patient, Instructed on discharge instructions, follow up and referral plans. medication usage, Demonstrated understanding of instructions, follow-up care, medications, Prescriptions given X 4. 02:19 Patient left the ED. mg2 Signatures: Dispatcher [employer] EDMI Elias Jackson MD MD cha Gardose, Michele, RN RN mg2 Carranza, Elsie ag3
[2020-08-12] MEDS ORDERED: TETANUS & DIPHTHERIA TOX,ADULT 0.5 ML VIAL ONE (00:39)
[2020-08-12] MEDS ORDERED: KETOROLAC 30 MG/ML INJ ONE (01:10)
--- NOTE | 2020-08-12 08:26 | RAD REPORT ---
EXAM DESCRIPTION: RAD - Foot Right 3 View - 08/12/2020 12:01 am CLINICAL HISTORY: PAIN COMPARISON: Foot Right 3 View dated 02/18/2019 FINDINGS: No fracture, dislocation or periosteal reaction. No acute bone or joint finding identified . No air or foreign body in the soft tissues. IMPRESSION: Negative right foot examination.
== END 2020-08-12 02:19 | disposition home or self-care (01) ==
LOC: ER 22:41
DX: L03.115 Cellulitis of right lower limb (principal); L03.125 Acute lymphangitis of right lower limb; Z88.3 Allergy status to other anti-infective agents; Z72.0 Tobacco use
CPT/HCPCS: 36415; 80053; 85025; 90714; 96365; 96366; 96375; 99284

== ENCOUNTER 2021-03-11 09:07 | Emergency (ER) | payer BC ==
--- OUTSIDE RECORDS SUMMARY | 2021-03-11 09:09 | XMS REPORT | Continuity of Care Document ---
:1990 Author Organization [facility] t Address [address] [place] [address] [address] [place] [address] Care Team Providers Name Role Phone DR GIOVANNY Attending Clinician Unavailable DR GIOVANNY Admitting Clinician Unavailable Problems This patient has no known problems. Allergies, Adverse Reactions, Alerts This patient has no known allergies or adverse reactions. Medications This patient has no known medications. Procedures This patient has no known procedures. Encounters Start End Encounter Admission Attending Care Care Encounter Source Date/Time Date/Time Type Type Clinicians Facility Department ID 2021-03-07 2021-03-07 Outpatient E ARSLAN [facility] [id number] [place] 12:51:00 13:45:00 [facility] Results This patient has no known results.
--- NOTE | 2021-03-11 09:31 | ER ---
Nurse's Notes [facility] Name: Nain Caballero Age: 31 yrs Sex: Male : 1990 Arrival Date: 03/11/2021 Time: 09:09 Bed 5 Private MD: Diagnosis: Bitten by dog;Pain in left wrist Presentation: 03/11 09:15 Chief complaint: Patient states: Dog bite to L arm Monday. Saw [facility] Monday. ll1 Taking antibiotics and Tylenol #4 as prescribed. Reports pain still. No fever. Needs a work release. Coronavirus screen: Client denies travel out of the [place] in the last 14 days. At this time, the client does not indicate any symptoms associated with coronavirus-19. Ebola Screen: Patient denies travel to an Ebola-affected area in the 21 days before illness onset. Initial Sepsis Screen: Does the patient meet any 2 criteria? HR > 90 bpm. No. Patient's initial sepsis screen is negative. Does the patient have a suspected source of infection? Yes: Skin breakdown/wound. Risk Assessment: Do you want to hurt yourself or someone else? Patient reports no desire to harm self or others. Onset of symptoms was March 07, 2021. 09:15 Method Of Arrival: Ambulatory [facility] 09:15 Acuity: SRAVAN 4 ll1 Triage Assessment: 09:17 Bite description: bite sustained to L arm is full thickness, from animal, by a dog, ll1 animal information: vaccination(s) is current. General: Appears in no apparent distress. Behavior is calm, cooperative, appropriate for age. Pain: Complains of pain in L FA Quality of pain is described as aching. Derm: Wound noted L FA. Musculoskeletal: Circulation, motion, and sensation intact. Capillary refill < 3 seconds, Range of motion: limited in left wrist Tenderness present in L wrist Reports pain in L arm. Injury Description: Bite. Historical: - Allergies: 09:14 Clindamycin; ll1 - PMHx: 09:14 Pneumothorax; ll1 - Immunization history:: Last tetanus immunization: up to date. - Social history:: Smoking status: . Screenin:17 Abuse screen: Denies threats or abuse. Nutritional screening: No deficits noted. ll1 Tuberculosis screening: No symptoms or risk factors identified. Fall Risk None identified. Total Brennan Fall Scale indicates No Risk (0-24 pts). Assessment: 09:39 General: Appears in no apparent distress. Behavior is calm, cooperative, appropriate ll1 for age. Pain: Complains of pain in left wrist Quality of pain is described as aching, Aggravated by increased activity. Derm: Skin is intact, Skin is pink, warm \T\ dry. 09:40 Musculoskeletal: Circulation, motion, and sensation intact. Capillary refill < 3 ll1 seconds. Vital Signs: 09:15 Pulse 95; Resp 16; Temp 98.4; Pulse Ox 100% ; ll1 09:19 BP 136 / 96; ll1 ED Course: 09:09 Patient arrived in ED. mr 09:12 Kam Kong PA is PHCP. jr8 09:12 Jose Chen MD is Attending Physician. jr8 09:14 Arm band placed on Patient placed in an exam room, on a stretcher. ll1 09:17 Triage completed. ll1 09:30 Keanu Weir MD is Referral Physician. jr8 09:35 Velcro wrist splint applied to left wrist. ll1 09:39 Moody Guzman RN is Primary Nurse. ll1 09:40 Patient has correct armband on for positive identification. Bed in low position. Call ll1 light in reach. Side rails up X 1. 09:40 No provider procedures requiring assistance completed. Patient did not have IV access ll1 during this emergency room visit. Administered Medications: No medications were administered Outcome: 09:30 Discharge ordered by . jr8 09:40 Discharged to home ambulatory. ll1 09:40 Condition: stable 09:40 Discharge instructions given to patient, Instructed on discharge instructions, follow up and referral plans. medication usage, wound care, Demonstrated understanding of instructions, follow-up care, medications, wound care, splint care, Prescriptions given X 1. 09:41 Patient left the ED. ll1 Signatures: Gillian Leon mr Kam Kong PA PA jr8 Moody Guzman, RN RN ll1 Corrections: (The following items were deleted from the chart) : 09:15 Chief complaint: Patient states: Dog bite to L arm Monday. Saw [facility] ll1 Monday. Taking antibiotics and Tylenol #4 as prescribed. Reports pain still. No fever. ll1 09:19 09:15 Acuity: SRAVAN 3 ll1 ll1
--- NOTE | 2021-03-11 09:31 | EDPHYS ---
Physician Documentation [facility] Name: Nain Caballero Age: 31 yrs Sex: Male : 1990 Arrival Date: 03/11/2021 Time: 09:09 Bed 5 Private MD: ED Physician Jose Chen HPI: 03/11 09:34 This 31 yrs old Male presents to ER via Ambulatory with complaints of Dog jr8 Bite, Arm Pain. 09:34 Onset: The symptoms/episode began/occurred acutely, 4 day(s) ago. Animal information: jr8 The animal was reported to appear healthy. Animal's vaccinations are up to date. The animal is known and can be quarantined, Animal control has been notified. Secondary to the bite the patient reports pain. Associated signs and symptoms: The patient has no apparent associated signs or symptoms. Severity of symptoms: At their worst the symptoms were moderate, in the emergency department the symptoms are unchanged. The patient has not experienced similar symptoms in the past. The patient has been recently seen by a physician:. Patient seen this past Monday after the bite for evaluation at [facility] in [place]. Stated that they put him on Abx and pain meds but wanted reevaluation because he is still having moderate pain and some weakness. . Historical: - Allergies: 09:14 Clindamycin; ll1 - PMHx: 09:14 Pneumothorax; ll1 - Immunization history:: Last tetanus immunization: up to date. - Social history:: Smoking status: . ROS: 09:34 Constitutional: Negative for fever, chills, and weight loss. jr8 09:34 MS/extremity: Positive for laceration, pain, of the left wrist. 09:34 Skin: Positive for laceration(s). 09:34 All other systems are negative. Exam: 09:34 Constitutional: This is a well developed, well nourished patient who is awake, alert, jr8 and in no acute distress. Cardiovascular: Regular rate and rhythm with a normal S1 and S2. No gallops, murmurs, or rubs. Normal PMI, no JVD. No pulse deficits. Respiratory: Lungs have equal breath sounds bilaterally, clear to auscultation and percussion. No rales, rhonchi or wheezes noted. No increased work of breathing, no retractions or nasal flaring. Skin: Warm, dry with normal turgor. Normal color with no rashes, no lesions, and no evidence of cellulitis. Neuro: Awake and alert, GCS 15, oriented to person, place, time, and situation. Cranial nerves II-XII grossly intact. Motor strength 5/5 in all extremities. Sensory grossly intact. 09:34 Musculoskeletal/extremity: Extremities: grossly normal except: noted in the left wrist: Patient has scabbed 1.5 cm laceration noted to proximal dorsal wrist without erythema or discharge. Moderate pain to palpation noted over the area. Patient has decreased abduction of fingers with weakness to 3rd and 4th digits when asked to pinch one another to the thumb, Circulation is intact in all extremities. Sensation intact. Vital Signs: 09:15 Pulse 95; Resp 16; Temp 98.4; Pulse Ox 100% ; ll1 09:19 BP 136 / 96; ll1 Procedures: 09:27 Splinting: Splint applied to left wrist using wrist splint, applied by myself. Examined jr8 by me, post splint application: neurovascular intact, 2+ distal pulses palpable, brisk capillary refill noted, Patient tolerated well. MDM: 09:12 Patient medically screened. jr8 09:27 Data reviewed: vital signs, nurses notes, and as a result, I will discharge patient. jr8 Data interpreted: Pulse oximetry: on room air is 100 %. Interpretation: normal. Counseling: I had a detailed discussion with the patient and/or guardian regarding: the historical points, exam findings, and any diagnostic results supporting the discharge/admit diagnosis, the need for outpatient follow up, a hand specialist, to return to the emergency department if symptoms worsen or persist or if there are any questions or concerns that arise at home. ED course: Discussed with patient that the wound itself looks decent. No signs of infection but because he is having so much pain on the dorsal aspect of the proximal wrist and is having weakness I recommended splinting and seeing hand for further evaluation to r/o a tear to one of the extensor tendons vs some synovitis to region. Will also start him on antiinflammatory. Patient good with this plan and will continue to take his other pain meds and finish his Abx . 03/11 09:27 Order name: Splint - Wrist; Complete Time: :27 jr8 Administered Medications: No medications were administered Disposition: 15:33 Co-signature as Attending Physician, Jose Chen MD. rn Disposition Summary: 03/11/21 09:30 Discharge Ordered Location: Home jr8 Problem: new jr8 Symptoms: have improved jr8 Condition: Stable jr8 Diagnosis - Bitten by dog jr8 - Pain in left wrist jr8 Followup: jr8 - With: Keanu Weir MD - When: 1 - 2 days - Reason: Recheck today's complaints, Continuance of care, Re-evaluation by your physician Discharge Instructions: - Discharge Summary Sheet jr8 - Tenosynovitis jr8 Forms: - Medication Reconciliation Form jr8 - Thank You Letter jr8 - Work release form jr8 - Antibiotic Education jr8 - Prescription Opioid Use jr8 Prescriptions: - meloxicam 15 mg Oral tablet - take 1 tablet by ORAL route once daily As needed; 16 tablet; Refills: 0, jr8 Product Selection Permitted Signatures: Jose Chen MD MD rn Roszak, Josh, PA PA jr8 Moody Guzman RN RN ll1
[2021-03-11 09:46] VITALS: TEMP 98.4; O2SAT 100
[2021-03-11 09:47] VITALS: BP 136/96
== END 2021-03-11 09:41 | disposition home or self-care (01) ==
LOC: ER 09:07
DX: M25.532 Pain in left wrist (principal); W54.0XXA Bitten by dog, initial encounter; Z88.3 Allergy status to other anti-infective agents
CPT/HCPCS: 99283

== ENCOUNTER 2022-02-07 15:06 | Emergency (ER) | payer BC, SELFPAY ==
--- OUTSIDE RECORDS SUMMARY | 2022-02-07 15:10 | XMS REPORT | Continuity of Care Document ---
:1990 Author Organization [facility] t Address [address] [place] [address] Care Team Providers Name Role Phone Shield Attending Clinician Unavailable Shield Admitting Clinician Unavailable Payers Payer Name Policy Type Policy Number Effective Date Expiration Date S alban [facility] [place] [id number] Problems This patient has no known problems. Allergies, Adverse Reactions, Alerts This patient has no known allergies or adverse reactions. Medications This patient has no known medications. Procedures This patient has no known procedures. Encounters Start End Encounter Admission Attending Care Care Encounter Source Date/Time Date/Time Type Type Clinicians Facility Department ID 2020-07-22 2020-07-22 [facility] [id number] [facility] 02:35:00 02:35:00 [id number] Results This patient has no known results.
--- NOTE | 2022-02-07 15:51 | ER ---
Nurse's Notes [facility] Name: Nain Caballero Age: 32 yrs Sex: Male : 1990 Arrival Date: 02/07/2022 Time: 15:07 Bed 12 Private MD: Diagnosis: Acute pharyngitis, unspecified;Disorder of teeth and supporting structures, unspecified Presentation: 02/07 15:22 Chief complaint: Patient states: Sore throat that started on Monday. Right lower tooth ww pain. Patient denies any fever. Coronavirus screen: Client denies travel out of the [place] in the last 14 days. Ebola Screen: Patient denies travel to an Ebola-affected area in the 21 days before illness onset. Initial Sepsis Screen: Does the patient meet any 2 criteria? No. Patient's initial sepsis screen is negative. Does the patient have a suspected source of infection? No. Patient's initial sepsis screen is negative. Risk Assessment: Do you want to hurt yourself or someone else? Patient reports no desire to harm self or others. Onset of symptoms is unknown. 15:22 Method Of Arrival: Ambulatory ww 15:22 Acuity: SRAVAN 4 ww Triage Assessment: 15:23 General: Appears in no apparent distress. Behavior is cooperative. Pain: Complains of ww pain in left buccal mucosa, uvula, right aspect of posterior pharynx, tongue, lower right first bicuspid, lower right second bicuspid and lower right first molar. EENT: Reports difficulty swallowing pain. Historical: - Allergies: 15:23 Clindamycin; ww - Home Meds: 15:23 None [Active]; ww - PMHx: 15:23 Pneumothorax; ww - PSHx: 15:23 Right wrist cyst removal; ww - Immunization history:: Adult Immunizations not up to date. - Social history:: Smoking status: Patient denies any tobacco usage or history of. Screenin:27 Abuse screen: Denies threats or abuse. Denies injuries from another. Nutritional iw screening: No deficits noted. Tuberculosis screening: No symptoms or risk factors identified. Fall Risk None identified. Assessment: 16:26 General: Appears in no apparent distress. comfortable, Behavior is calm, cooperative. iw Respiratory: Airway is patent Respiratory effort is. Respiratory: Breath sounds are clear bilaterally. EENT: Throat is clear. Vital Signs: 15:22 BP 132 / 87; Pulse 91; Resp 18; Temp 98.2; Pulse Ox 99% ; Weight 102.06 kg; Height 6 ww ft. 1 in. (185.42 cm); Pain 8/10; 15:22 Body Mass Index 29.68 (102.06 kg, 185.42 cm) ww ED Course: 15:07 Patient arrived in ED. am2 15:09 Elias Giron PA is PHCP. cp 15:10 Jose Chen MD is Attending Physician. cp 15:23 Triage completed. ww 15:23 Arm band placed on right wrist. ww 16:22 Kia Lewis, RN is Primary Nurse. iw 16:27 No provider procedures requiring assistance completed. Patient did not have IV access iw during this emergency room visit. Administered Medications: No medications were administered Medication: 16:27 VIS not applicable for this client. iw Outcome: 15:50 Discharge ordered by MD. cp 16:27 Discharged to home ambulatory. iw 16:27 Condition: good 16:27 Discharge instructions given to patient, Instructed on discharge instructions, follow up and referral plans. medication usage, Demonstrated understanding of instructions, follow-up care, medications, Prescriptions given X 3. 16:27 Patient left the ED. iw Signatures: Kia Lewis, RN RN Elias Giron PA PA Brenda Russell am2 Elvia Sadler RN RN
--- NOTE | 2022-02-07 15:51 | EDPHYS ---
Physician Documentation [facility] Name: Nain Caballero Age: 32 yrs Sex: Male : 1990 Arrival Date: 02/07/2022 Time: 15:07 Bed 12 Private MD: ED Physician Jose Chen HPI: 02/07 15:45 This 32 yrs old Male presents to ER via Ambulatory with complaints of Sore Throat, cp Toothache. 15:45 The patient presents with sore throat. The patient describes throat pain as constant. cp Onset: The symptoms/episode began/occurred 3 day(s) ago. Severity of symptoms: in the emergency department the symptoms are unchanged, despite home interventions. Associated signs and symptoms: Pertinent positives: cough, left lower tooth pain, Pertinent negatives dysphagia, fever, flu-like symptoms. Historical: - Allergies: 15:23 Clindamycin; ww - Home Meds: 15:23 None [Active]; ww - PMHx: 15:23 Pneumothorax; ww - PSHx: 15:23 Right wrist cyst removal; ww - Immunization history:: Adult Immunizations not up to date. - Social history:: Smoking status: Patient denies any tobacco usage or history of. ROS: 15:47 Constitutional: Negative for body aches, chills, fever, poor PO intake. cp 15:47 Eyes: Negative for injury, pain, redness, and discharge. cp 15:47 ENT: Positive for dental pain, sore throat, Negative for drainage from ear(s), ear pain, sinus congestion, sinus pain, difficulty swallowing, difficulty handling secretions. 15:47 Neck: Negative for pain with movement, pain at rest, stiffness. 15:47 Cardiovascular: Negative for chest pain. 15:47 Respiratory: Negative for cough, shortness of breath, wheezing. 15:47 Abdomen/GI: Negative for abdominal pain, nausea, vomiting, and diarrhea. 15:47 Neuro: Negative for altered mental status, dizziness, headache, weakness. 15:47 All other systems are negative. Exam: 15:48 Constitutional: The patient appears in no acute distress, alert, awake, non-toxic, well cp developed, well nourished. 15:48 Head/Face: Normocephalic, atraumatic. cp 15:48 Eyes: Periorbital structures: appear normal, Conjunctiva: normal, no exudate, no injection, Lids and lashes: appear normal, bilaterally. 15:48 ENT: External ear(s): are unremarkable, Ear canal(s): are normal, clear, TM's: bulging, is not appreciated, bilaterally, dullness, bilaterally, erythema, is not appreciated, bilaterally, Nose: is normal, Mouth: Lips: moist, Oral mucosa: pink and intact, moist, Posterior pharynx: Airway: no evidence of obstruction, patent, Tonsils: bilaterally enlarged, with erythema, Uvula: midline, erythema, that is moderate, exudate, is not appreciated, Dental exam: abscess, is not appreciated, dental caries, that is moderate, diffusely, gum swelling, not appreciated, pain, that is moderate, specifically in the lower left third molar (#17), Voice: is normal. 15:48 Neck: ROM/movement: is normal, is supple, without pain, no range of motions limitations, no meningismus, no nuchal rigidity. 15:48 Chest/axilla: Inspection: normal. 15:48 Cardiovascular: Rate: normal, Rhythm: regular. 15:48 Respiratory: the patient does not display signs of respiratory distress, Respirations: normal, no use of accessory muscles, no retractions, labored breathing, is not present, Breath sounds: are clear throughout, no decreased breath sounds, no stridor, no wheezing. 15:48 Abdomen/GI: Exam negative for discomfort, distension, guarding, Inspection: abdomen appears normal. Vital Signs: 15:22 BP 132 / 87; Pulse 91; Resp 18; Temp 98.2; Pulse Ox 99% ; Weight 102.06 kg; Height 6 ww ft. 1 in. (185.42 cm); Pain 8/10; 15:22 Body Mass Index 29.68 (102.06 kg, 185.42 cm) ww MDM: 15:31 Patient medically screened. cp 15:50 Data reviewed: vital signs, nurses notes, and as a result, I will discharge patient. cp 15:50 Counseling: I had a detailed discussion with the patient and/or guardian regarding: the cp historical points, exam findings, and any diagnostic results supporting the discharge/admit diagnosis, lab results, radiology results, to return to the emergency department if symptoms worsen or persist or if there are any questions or concerns that arise at home. Administered Medications: No medications were administered Disposition: 02/08 10:08 Co-signature as Attending Physician, Jose Chen MD. rn Disposition Summary: 02/07/22 15:50 Discharge Ordered Location: Home cp Problem: new cp Symptoms: have improved cp Condition: Stable cp Diagnosis - Acute pharyngitis, unspecified cp - Disorder of teeth and supporting structures, unspecified cp Followup: cp - With: Private Physician - When: 2 - 3 days - Reason: Recheck today's complaints Discharge Instructions: - Discharge Summary Sheet cp - Dental Pain cp - Pharyngitis cp - Sore Throat cp Forms: - Medication Reconciliation Form cp - Thank You Letter cp - Antibiotic Education cp - Prescription Opioid Use cp - Work release form iw Prescriptions: - Amoxicillin 875 mg Oral Tablet - take 1 tablet by ORAL route every 12 hours for 10 days; 20 tablet; Refills: 0, cp Product Selection Permitted - Naprosyn 500 mg Oral Tablet - take 1 tablet by ORAL route 2 times per day take with food; 20 tablet; Refills: cp 0, Product Selection Permitted - Tramadol 50 mg Oral Tablet - take 1 tablet by ORAL route every 8 hours as needed; 12 tablet; Refills: 0, cp Product Selection Permitted Signatures: Jose Chen MD MD rn Page, Corey, PA PA cp Wood, Whitney, RN RN ww Corrections: (The following items were deleted from the chart) 02/07 15:48 15:46 The patient presents with sore throat, cp cp 15:48 15:46 The patient describes throat pain as constant, cp cp 15:48 15:46 Onset: The symptoms/episode began/occurred 3 day(s) ago, cp cp 15:48 15:46 Severity of symptoms: in the emergency department the symptoms are unchanged, cp despite home interventions, cp 15:48 15:46 Associated signs and symptoms: Pertinent positives: cough, left lower tooth pain, cp Pertinent negatives dysphagia, fever, flu-like symptoms, cp 15:48 15:46 This 32 yrs old Male presents to ER via Ambulatory with complaints of Sore cp Throat, Toothache. cp 02/08 15:53 02/07 15:50 Constitutional: Negative for body aches, chills, fever, poor PO intake, cp cp
[2022-02-07 16:56] VITALS: BP 132/87; TEMP 98.2; O2SAT 99
== END 2022-02-07 16:27 | disposition home or self-care (01) ==
LOC: ER 15:06
DX: J02.9 Acute pharyngitis, unspecified (principal); K08.89 Other specified disorders of teeth and supporting structures; Z88.3 Allergy status to other anti-infective agents
CPT/HCPCS: 99282

== ENCOUNTER 2022-06-04 19:22 | Emergency (ER) | payer SELFPAY ==
--- OUTSIDE RECORDS SUMMARY | 2022-06-04 19:24 | XMS REPORT | Continuity of Care Document ---
:[address] [facility] t Address [address] [place] [address] Care Team Providers Name Role Phone DR ARSLAN BALTAZAR Attending Clinician Unavailable Bertha Attending Clinician Unavailable DR ARSLAN BALTAZAR Admitting Clinician Unavailable Bertha Admitting Clinician Unavailable Payers Payer Name Policy Type Policy Number Effective Date Expiration Date S alban [facility] [place] [id number] Problems This patient has no known problems. Allergies, Adverse Reactions, Alerts Allergy Allergy Status Severity Reaction(s) Onset Inactive Treating Comm ents Source Name Type Date Date Clinician Clindamy DA Active Unknown [facility] Medications This patient has no known medications. Vital Signs Vital Name Observation Time Observation Value Comments Source Weight 2021-03-07 13:02:00 110 KG Height 2021-03-07 13:02:00 182.88 CM Procedures This patient has no known procedures. Encounters Start End Encounter Admission Attending Care Care Encounter Source Date/Time Date/Time Type Type Clinicians Facility Department ID 2021-03-07 2021-03-07 Outpatient E ARSLAN BALTAZAR [facility] [id number] [facility] 12:51:00 13:45:00 [facility] 2020-07-22 2020-07-22 Outpatient [facility] [id number] [place] 02:35:00 02:35:00 [facility] Results This patient has no known results.
--- NOTE | 2022-06-04 20:10 | EDPHYS ---
Physician Documentation [facility] Name: Nain Caballero Age: 32 yrs Sex: Male : 1990 Arrival Date: 06/04/2022 Time: 19:22 Bed IW1 Private MD: ED Physician Tavon Adame HPI: 06/04 23:15 This 32 yrs old Male presents to ER via Ambulatory with complaints of Toothache. snw 23:15 The patient presents with broken tooth/teeth, pain, swelling. The problem is located in snw the lower left first molar and lower left second molar. Onset: The symptoms/episode began/occurred gradually, and became persistent. Associated signs and symptoms: The patient has no apparent associated signs or symptoms. Severity of symptoms: At their worst the symptoms were moderate, severe. The patient has experienced similar episodes in the past, chronically. The patient has not recently seen a physician. Pt states he has appt with dentist on . Historical: - Allergies: 20:05 Clindamycin; bm7 - Home Meds: 20:05 None [Active]; bm7 - PMHx: 20:05 Pneumothorax; bm7 - PSHx: 20:05 Right wrist cyst removal; bm7 - Immunization history:: Adult Immunizations up to date, Client reports having NOT received the Covid vaccine. - Social history:: Smoking status: Patient denies any tobacco usage or history of. ROS: 23:15 Constitutional: Negative for fever, chills, and weight loss, Eyes: Negative for injury, snw pain, redness, and discharge, Neck: Negative for injury, pain, and swelling, Cardiovascular: Negative for chest pain, palpitations, and edema, Respiratory: Negative for shortness of breath, cough, wheezing, and pleuritic chest pain, Abdomen/GI: Negative for abdominal pain, nausea, vomiting, diarrhea, and constipation, Back: Negative for injury and pain, : Negative for injury, bleeding, discharge, and swelling, MS/Extremity: Negative for injury and deformity, Skin: Negative for injury, rash, and discoloration, Neuro: Negative for headache, weakness, numbness, tingling, and seizure, Psych: Negative for depression, anxiety, suicide ideation, homicidal ideation, and hallucinations. 23:15 ENT: Positive for Teeth pain Exam: 23:14 Constitutional: This is a well developed, well nourished patient who is awake, alert, snw and in no acute distress. Head/Face: Normocephalic, atraumatic. Eyes: Pupils equal round and reactive to light, extra-ocular motions intact. Lids and lashes normal. Conjunctiva and sclera are non-icteric and not injected. Cornea within normal limits. Periorbital areas with no swelling, redness, or edema. Neck: Trachea midline, no thyromegaly or masses palpated, and no cervical lymphadenopathy. Supple, full range of motion without nuchal rigidity, or vertebral point tenderness. No Meningismus. Chest/axilla: Normal chest wall appearance and motion. Nontender with no deformity. No lesions are appreciated. Cardiovascular: Regular rate and rhythm with a normal S1 and S2. No gallops, murmurs, or rubs. Normal PMI, no JVD. No pulse deficits. Respiratory: Lungs have equal breath sounds bilaterally, clear to auscultation and percussion. No rales, rhonchi or wheezes noted. No increased work of breathing, no retractions or nasal flaring. Abdomen/GI: Soft, non-tender, with normal bowel sounds. No distension or tympany. No guarding or rebound. No evidence of tenderness throughout. Back: No spinal tenderness. No costovertebral tenderness. Full range of motion. Skin: Warm, dry with normal turgor. Normal color with no rashes, no lesions, and no evidence of cellulitis. MS/ Extremity: Pulses equal, no cyanosis. Neurovascular intact. Full, normal range of motion. Neuro: Awake and alert, GCS 15, oriented to person, place, time, and situation. Cranial nerves II-XII grossly intact. Motor strength 5/5 in all extremities. Sensory grossly intact. Cerebellar exam normal. Normal gait. 23:14 ENT: External ear(s): are unremarkable, TM's: are normal, Nose: is normal, Posterior pharynx: is normal, Dental exam: dental caries, that is moderate, that is severe, diffusely, left lower molar with decay, tenderness. Vital Signs: 20:04 BP 130 / 84; Pulse 74; Resp 16; Temp 97.0(TE); Pulse Ox 100% on R/A; Weight 102.06 kg bm7 (R); Height 6 ft. 1 in. (185.42 cm); Pain 10; 20:04 Body Mass Index 29.68 (102.06 kg, 185.42 cm) bm7 MDM: 20:10 Patient medically screened. snw 23:16 Data reviewed: vital signs, nurses notes. Data interpreted: Pulse oximetry: on room air snw is 100 %. Interpretation: normal. Counseling: I had a detailed discussion with the patient and/or guardian regarding: the historical points, exam findings, and any diagnostic results supporting the discharge/admit diagnosis, the need for outpatient follow up, to return to the emergency department if symptoms worsen or persist or if there are any questions or concerns that arise at home. 23:17 Special discussion: Based on the history and exam findings, there is no indication for snw further emergent testing or inpatient evaluation. I discussed with the patient/guardian the need to see a dentist for further evaluation of the symptoms. I discussed with the patient/guardian the need to see the primary care provider for further evaluation of the symptoms. Administered Medications: 20:11 CANCELLED (other interventionn): Augmentin (Amoxicillin-Clavulanate) 500 mg PO once snw 20:14 Drug: HYDROcodone-acetaminophen 5 mg-325 mg 1 tabs Route: PO; bm7 20:15 Follow up: Response: No adverse reaction bm7 20:14 Drug: Augmentin (Amoxicillin-Clavulanate) 875 mg Route: PO; bm7 20:14 Follow up: Response: No adverse reaction bm7 Disposition Summary: 06/04/22 20:10 Discharge Ordered Location: Home snw Condition: Stable snw Diagnosis - Dental root caries snw Followup: snw - With: Emergency Department - When: As needed - Reason: Worsening of condition Followup: snw - With: Private Physician - When: 2 - 3 days - Reason: Recheck today's complaints, Continuance of care, Re-evaluation by your physician Discharge Instructions: - Discharge Summary Sheet snw - Dental Caries, Adult snw - Dental Pain snw - Root Canal snw - Diet and Dental Disease snw - Dental Extraction, Care After, [id number] snw Forms: - Medication Reconciliation Form snw - Thank You Letter snw - Antibiotic Education snw - Prescription Opioid Use snw Prescriptions: - Augmentin 500-125 mg Oral Tablet - take 1 tablet by ORAL route every 8 hours for 10 days; 30 tablet; Refills: 0, snw Product Selection Permitted - Mobic 7.5 mg Oral Tablet - take 1 tablet by ORAL route once daily take with food; 20 tablet; Refills: 0, snw Product Selection Permitted - Tramadol 50 mg Oral Tablet - take 1 tablet by ORAL route every 8 hours as needed; 12 tablet; Refills: 0, snw Product Selection Permitted Signatures: Rima Waller FNP-C [employer]-Manju Cavanaugh, RN RN bm7 Corrections: (The following items were deleted from the chart) 20:11 20:09 Augmentin (Amoxicillin-Clavulanate) 500 mg PO once ordered. snw snw 23:17 23:16 Special discussion: Based on the history and exam findings, there is no snw indication for further emergent testing or inpatient evaluation. I discussed with the patient/guardian the need to see the deli cook for further evaluation of the symptoms. snw
--- NOTE | 2022-06-04 20:10 | ER ---
Nurse's Notes [facility] Name: Nain Caballero Age: 32 yrs Sex: Male : 1990 Arrival Date: 06/04/2022 Time: 19:22 Bed IW1 Private MD: Diagnosis: Dental root caries Presentation: 06/04 20:04 Chief complaint: Patient states: I have a really bad toothache and I can not get into bm7 the dentist until . Coronavirus screen: At this time, the client does not indicate any symptoms associated with coronavirus-19. Ebola Screen: No symptoms or risks identified at this time. Initial Sepsis Screen: Does the patient meet any 2 criteria? No. Patient's initial sepsis screen is negative. Does the patient have a suspected source of infection? No. Patient's initial sepsis screen is negative. Risk Assessment: Do you want to hurt yourself or someone else? Patient reports no desire to harm self or others. Onset of symptoms is unknown. 20:04 Method Of Arrival: Ambulatory bm7 20:04 Acuity: SRAVAN 5 bm7 Triage Assessment: 20:05 General: Appears in no apparent distress. uncomfortable, Behavior is calm, cooperative, bm7 appropriate for age. Pain: Complains of pain in mouth. EENT: Reports pain in lower left third molar, lower left second molar and lower left first molar. Neuro: No deficits noted. Cardiovascular: No deficits noted. Respiratory: No deficits noted. GI: No deficits noted. No signs and/or symptoms were reported involving the gastrointestinal system. : No deficits noted. No signs and/or symptoms were reported regarding the genitourinary system. Derm: No deficits noted. No signs and/or symptoms reported regarding the dermatologic system. Musculoskeletal: No deficits noted. No signs and/or symptoms reported regarding the musculoskeletal system. Historical: - Allergies: 20:05 Clindamycin; bm7 - Home Meds: 20:05 None [Active]; bm7 - PMHx: 20:05 Pneumothorax; bm7 - PSHx: 20:05 Right wrist cyst removal; bm7 - Immunization history:: Adult Immunizations up to date, Client reports having NOT received the Covid vaccine. - Social history:: Smoking status: Patient denies any tobacco usage or history of. Screenin:15 Abuse screen: Denies threats or abuse. Nutritional screening: No deficits noted. bm7 Tuberculosis screening: No symptoms or risk factors identified. Fall Risk None identified. Assessment: 20:15 Reassessment: No changes from previously documented assessment. bm7 Vital Signs: 20:04 BP 130 / 84; Pulse 74; Resp 16; Temp 97.0(TE); Pulse Ox 100% on R/A; Weight 102.06 kg bm7 (R); Height 6 ft. 1 in. (185.42 cm); Pain 10/10; 20:04 Body Mass Index 29.68 (102.06 kg, 185.42 cm) bm7 ED Course: 19:22 Patient arrived in ED. am2 20:03 Rima Waller [facility]C [facility]. snw 20:03 Tavon Adame MD is Attending Physician. snw 20:04 Arm band placed on right wrist. bm7 20:05 Triage completed. bm7 20:11 Janine Funk RN is Primary Nurse. eh3 20:15 Patient has correct armband on for positive identification. bm7 20:15 No provider procedures requiring assistance completed. Patient did not have IV access bm7 during this emergency room visit. Administered Medications: 20:11 CANCELLED (other interventionn): Augmentin (Amoxicillin-Clavulanate) 500 mg PO once snw 20:14 Drug: HYDROcodone-acetaminophen 5 mg-325 mg 1 tabs Route: PO; bm7 20:15 Follow up: Response: No adverse reaction bm7 20:14 Drug: Augmentin (Amoxicillin-Clavulanate) 875 mg Route: PO; bm7 20:14 Follow up: Response: No adverse reaction bm7 Medication: 20:15 VIS not applicable for this client. bm7 Outcome: 20:10 Discharge ordered by . snw 20:15 Discharged to home ambulatory. bm7 20:15 Condition: good 20:15 Discharge instructions given to patient, Instructed on discharge instructions, follow up and referral plans. medication usage, Demonstrated understanding of instructions, follow-up care, medications, Prescriptions given X 1. 20:15 Patient left the ED. bm7 Signatures: Rima Waller FNP-C [facility] RN-Cs[facility] Brenda Motley am2 Manju Kapoor RN RN 7 Janine Funk RN RN 3
[2022-06-04] MEDS ORDERED: AMOX/K CLAV 875 MG TAB ONE (20:11)
[2022-06-04] MEDS ORDERED: HYDROCODONE/APAP 5/325 MG TAB ONE (20:11)
[2022-06-04 20:23] VITALS: BP 130/84; TEMP 97; O2SAT 100
== END 2022-06-04 20:15 | disposition home or self-care (01) ==
LOC: ER 19:22
DX: K02.7 Dental root caries (principal); Z88.3 Allergy status to other anti-infective agents
CPT/HCPCS: 99283

== ENCOUNTER 2022-07-16 13:47 | Emergency (ER) | payer SELFPAY ==
--- OUTSIDE RECORDS SUMMARY | 2022-07-16 13:49 | XMS REPORT | Continuity of Care Document ---
:1990 Author Organization [facility] t Address [address] [place] [address] Care Team Providers Name Role Phone DR ARSLAN BALTAZAR Attending Clinician Unavailable Bertha Attending Clinician Unavailable DR ARSLAN BALTAZAR Admitting Clinician Unavailable Bertha Admitting Clinician Unavailable Payers Payer Name Policy Type Policy Number Effective Date Expiration Date [facility] [place] [id number] Problems This patient has no known problems. Allergies, Adverse Reactions, Alerts Allergy Allergy Status Severity Reaction(s) Onset Inactive Treating Comm ents Source Name Type Date Date Clinician Clindamy DA Active Unknown [facility] Medications This patient has no known medications. Vital Signs Vital Name Observation Time Observation Value Comments Source Weight 2021-03-07 13:02:00 110 KG Height 2021-03-07 13:02:00 182.88 CM Procedures This patient has no known procedures. Encounters Start End Encounter Admission Attending Care Care Encounter Source Date/Time Date/Time Type Type Clinicians Facility Department ID 2021-03-07 2021-03-07 Outpatient E ARSLAN BALTAZAR [facility] [id number] [facility] 12:51:00 13:45:00 [facility] 2020-07-22 2020-07-22 Outpatient [facility] [id number] [place] 02:35:00 02:35:00 [id number] Results This patient has no known results.
[2022-07-16] MEDS ORDERED: DIPHENHYDRAMINE 50 MG/ML VIAL ONE (14:04)
[2022-07-16] MEDS ORDERED: EPINEPHRINE/PF 1 MG/ML AMP ONE (14:04)
[2022-07-16] MEDS ORDERED: METHYLPREDNISOLONE 125 MG INJ ONE (14:04)
[2022-07-16] MEDS ORDERED: FAMOTIDINE 20 MG/2 ML VIAL IV ONE (14:04)
[2022-07-16] MEDS ORDERED: NA CHLORIDE 0.9% 1,000 ML ONE (14:05)
[2022-07-16] MEDS ORDERED: IBUPROFEN 400 MG TAB ONE (16:15)
[2022-07-16] MEDS ORDERED: AMOX/K CLAV 875 MG TAB ONE (16:16)
[2022-07-16] MEDS ORDERED: HYDROCODONE/APAP 7.5/325 MG TAB ONE (16:16)
--- NOTE | 2022-07-16 16:22 | EDPHYS ---
Physician Documentation [facility] Name: Nain Caballero Age: 32 yrs Sex: Male : 1990 Arrival Date: 07/16/2022 Time: 13:48 Bed 8 Private MD: ED Physician Nayeli Alvarez HPI: 07/16 14:00 This 32 yrs old Male presents to ER via Ambulatory with complaints of Allergic Reaction.cp 14:00 The patient presents with throat tightness, facial swelling. Onset: The cp symptoms/episode began/occurred suddenly, just prior to arrival. 14:00 Associated signs and symptoms: Pertinent positives: shortness of breath, rhinorrhea, cp throat tightness and itchy, Pertinent negatives: chest pain, dysphagia, fever, rash, vomiting. 14:00 Possible causes: grapes. At home the patient or guardian has treated the symptoms with cp nothing. 14:00 Patient also presents with complaints of left lower back molar tooth pain. cp Historical: - Allergies: 13:56 Clindamycin; ll1 - PMHx: 13:56 Pneumothorax; ll1 - PSHx: 13:56 Right wrist cyst removal; ll1 - Immunization history:: Adult Immunizations up to date. - Social history:: Smoking status: Patient denies any tobacco usage or history of. ROS: 14:05 Constitutional: Negative for body aches, chills, fever, poor PO intake. cp 14:05 Eyes: Negative for injury, pain, redness, and discharge. cp 14:05 ENT: Positive for dental pain, scratchy throat, Negative for drainage from ear(s), ear pain, difficulty swallowing, difficulty handling secretions. 14:05 Cardiovascular: Negative for chest pain, palpitations. 14:05 Respiratory: Positive for shortness of breath, Negative for cough, wheezing. 14:05 Abdomen/GI: Negative for abdominal pain, vomiting, diarrhea, constipation. 14:05 Skin: Positive for swelling, of the face. 14:05 Neuro: Negative for altered mental status, headache, syncope, weakness. 14:05 All other systems are negative. Exam: 14:08 Constitutional: The patient appears in no acute distress, alert, awake, non-toxic, well cp developed, well nourished. 14:08 Head/face: Noted is swelling, of the right cheek, of the very mild. 14:08 Eyes: Pupils: equal, round, and reactive to light and accomodation, Extraocular movements: intact throughout, Conjunctiva: normal, no exudate, no injection, Sclera: no appreciated abnormality, Lids and lashes: appear normal, bilaterally. 14:08 ENT: External ear(s): are unremarkable, Nose: is normal, Mouth: Lips: moist, Oral mucosa: pink and intact, moist, Posterior pharynx: Airway: no evidence of obstruction, patent, swelling, is not appreciated, erythema, is not appreciated, exudate, is not appreciated, Dental exam: abscess, is not appreciated, dental caries, that is moderate, diffusely, pain, that is moderate, specifically in the lower left third molar (#17), crown partially fractured, Voice: mild horseness. 14:08 Neck: ROM/movement: is normal, is supple, without pain, no range of motions limitations, no meningismus. 14:08 Chest/axilla: Inspection: normal. 14:08 Cardiovascular: Rate: tachycardic, Rhythm: regular. 14:10 Respiratory: the patient does not display signs of respiratory distress, Respirations: cp normal, no use of accessory muscles, no retractions, labored breathing, is not present, Breath sounds: decreased breath sounds, are not appreciated, stridor, is not appreciated, wheezing: is not appreciated. 14:10 Abdomen/GI: Inspection: abdomen appears normal, Palpation: abdomen is soft and cp non-tender, in all quadrants. 14:10 Skin: no rash present. 14:10 Neuro: Orientation: to person, place \T\ time. Mentation: is normal, Motor: moves all fours, strength is normal, Sensation: is normal. Vital Signs: 13:49 BP 141 / 84; Pulse 106; Resp 20 S; Temp 97.8(TE); Pulse Ox 99% on R/A; aa5 13:56 BP 141 / 84; Pulse 99; Resp 18; Temp 98.0; Pulse Ox 96% ; Pain 0/10; ll1 15:29 BP 135 / 72; Pulse 95; Resp 18; Pulse Ox 100% on R/A; vg1 17:12 BP 136 / 75; Pulse 97; Resp 20; Pulse Ox 98% ; kb3 MDM: 13:56 Patient medically screened. cp 16:20 Data reviewed: vital signs, nurses notes, and as a result, I will discharge patient. cp 16:20 Counseling: I had a detailed discussion with the patient and/or guardian regarding: the cp historical points, exam findings, and any diagnostic results supporting the discharge/admit diagnosis, the need for outpatient follow up, for definitive care, a dentist, a family practitioner, to return to the emergency department if symptoms worsen or persist or if there are any questions or concerns that arise at home. Response to treatment: the patient's symptoms have markedly improved after treatment, and as a result, I will discharge patient. 07/16 13:56 Order name: IV; Complete Time: 13:58 cp Administered Medications: 13:55 CANCELLED (Physician Discretion): SOLU-Medrol (methylPREDNISolone sodium succinate) 125 cp mg IM once 13:55 CANCELLED (Physician Discretion): Benadryl (diphenhydrAMINE) 50 mg IM once cp 14:16 Drug: SOLU-Medrol (methylPrednisoLONE) 125 mg Route: IVP; Site: right antecubital; ll1 15:00 Follow up: Response: No adverse reaction; Pain is decreased kb3 14:16 Drug: EPINEPHrine 1mg/mL 1:1,000 0.2 ml Route: Sub-Q; Site: right lower abdomen; ll1 15:00 Follow up: Response: No adverse reaction kb3 14:16 Drug: Benadryl (diphenhydrAMINE) 50 mg Route: IVP; Site: right antecubital; ll1 15:00 Follow up: Response: No adverse reaction kb3 14:16 Drug: Pepcid (famotidine) 20 mg Route: IVP; Site: right antecubital; ll1 15:00 Follow up: Response: No adverse reaction kb3 14:16 Drug: NS 0.9% 1000 ml Route: IV; Rate: 1 bolus; Site: right antecubital; ll1 16:12 Follow up: IV Status: Completed infusion; IV Intake: 1000ml vg1 16:19 Drug: Ibuprofen 800 mg Route: PO; vg1 17:23 Follow up: Response: No adverse reaction; Pain is decreased kb3 16:19 Drug: Augmentin (Amoxicillin-Clavulanate) 875 mg Route: PO; vg1 17:23 Follow up: Response: No adverse reaction kb3 16:20 Drug: Hydrocodone-Acetaminophen (7.5 mg-325 mg) 1 tabs Route: PO; vg1 17:24 Follow up: Response: No adverse reaction; Pain is decreased kb3 Disposition Summary: 07/16/22 16:21 Discharge Ordered Location: Home cp Problem: new cp Symptoms: have improved cp Condition: Stable cp Diagnosis - Allergy to other foods cp - Disorder of teeth and supporting structures, unspecified cp Followup: cp - With: Private Physician - When: 2 - 3 days - Reason: allergic reaction Followup: cp - With: Jony Brewer DDS - When: 2 - 3 days - Reason: dental pain Discharge Instructions: - Discharge Summary Sheet cp - Dental Pain cp - Food Allergy cp Forms: - Medication Reconciliation Form cp - Thank You Letter cp - Antibiotic Education cp - Prescription Opioid Use cp - Work release form kb3 Prescriptions: - Amoxicillin 875 mg Oral Tablet - take 1 tablet by ORAL route every 12 hours for 10 days; 20 tablet; Refills: 0, cp Product Selection Permitted - Pepcid 20 mg Oral Tablet - take 1 tablet by ORAL route every 12 hours for 5 days; 10 tablet; Refills: 0, cp Product Selection Permitted - Ibuprofen 800 mg Oral Tablet - take 1 tablet by ORAL route every 8 hours As needed take with food; 30 tablet; cp Refills: 0, Product Selection Permitted - Prednisone 20 mg Oral Tablet - take 2 tablets by ORAL route once daily for 5 days; 10 tablet; Refills: 0, cp Product Selection Permitted Signatures: Elias Giron PA PA cp Garcia, Victoria, RN RN vg1 Moody Guzman RN RN ll1 Yared Mccrary jl9 Gloria Loya RN kb3 Corrections: (The following items were deleted from the chart) 13:55 13:53 SOLU-Medrol (methylPREDNISolone sodium succinate) 125 mg IM once ordered. jl9 cp 13:55 13:53 Benadryl (diphenhydrAMINE) 50 mg IM once ordered. jl9 cp 16:19 14:00 Constitutional: The patient appears in no acute distress, alert, awake, cp non-toxic, well developed, well nourished, cp 16:19 14:00 Head/face: Noted is swelling, of the right cheek, of the very mild, cp cp 16:19 14:00 Eyes: Pupils: equal, round, and reactive to light and accomodation, Extraocular cp movements: intact throughout, Conjunctiva: normal, no exudate, no injection, Sclera: no appreciated abnormality, Lids and lashes: appear normal, bilaterally, cp 16: 14:00 ENT: External ear(s): are unremarkable, Nose: is normal, Mouth: Lips: moist, Oral cp mucosa: pink and intact, moist, Posterior pharynx: Airway: no evidence of obstruction, patent, swelling, is not appreciated, erythema, is not appreciated, exudate, is not appreciated, Dental exam: abscess, is not appreciated, dental caries, that is moderate, diffusely, pain, that is moderate, specifically in the lower left third molar (#17), crown partially fractured, Voice: mild horseness, cp 16: 14:00 Neck: ROM/movement: is normal, is supple, without pain, no range of motions cp limitations, no meningismus, cp 16: 14:00 Chest/axilla: Inspection: normal, cp cp 16: 14:00 Cardiovascular: Rate: tachycardic, Rhythm: regular, cp cp 07/17 15:08 11/ 14:00 Associated signs and symptoms: Pertinent positives: shortness of breath, cp Pertinent negatives: abdominal pain, chest pain, dysphagia, fever, headache, vomiting, cp
--- NOTE | 2022-07-16 16:22 | ER ---
Nurse's Notes [facility] Name: Nain Caballero Age: 32 yrs Sex: Male : 1990 Arrival Date: 07/16/2022 Time: 13:48 Bed 8 Private MD: Diagnosis: Allergy to other foods;Disorder of teeth and supporting structures, unspecified Presentation: 07/16 13:49 Chief complaint: Patient states: "my right eye started swelling just a few minutes ago aa5 after eating a grape". Pt now c/o itchy throat and tightness to throat, reports runny nose, and SOB. 13:49 Coronavirus screen: At this time, the client does not indicate any symptoms associated aa5 with coronavirus-19. Ebola Screen: No symptoms or risks identified at this time. Onset: The symptoms/episode began/occurred 15 minute(s) ago. Anaphylaxis evaluation, the patient reports or I have noted the following symptoms which indicate a significant risk of anaphylaxis: shortness of breath. Initial Sepsis Screen: Does the patient meet any 2 criteria? No. Patient's initial sepsis screen is negative. Does the patient have a suspected source of infection? No. Patient's initial sepsis screen is negative. Risk Assessment: Do you want to hurt yourself or someone else? Patient reports no desire to harm self or others. Onset of symptoms was July 2022. 13:49 Acuity: SRAVAN 2 aa5 13:49 Method Of Arrival: Ambulatory aa5 13:56 Chief complaint: Patient states: Ate 5 grapes, then started to feel throat tingling, R ll1 eye swelling, and nasal congestion making it hard for him to breathe. Coronavirus screen: Vaccine status: Patient reports receiving the 2nd dose of the covid vaccine. Client denies travel out of the [place] in the last 14 days. At this time, the client does not indicate any symptoms associated with coronavirus-19. Ebola Screen: Patient denies travel to an Ebola-affected area in the 21 days before illness onset. Onset: The symptoms/episode began/occurred suddenly. Anaphylaxis evaluation, angioedema. Initial Sepsis Screen: Does the patient meet any 2 criteria? No. Patient's initial sepsis screen is negative. Does the patient have a suspected source of infection? No. Patient's initial sepsis screen is negative. Risk Assessment: Do you want to hurt yourself or someone else? Patient reports no desire to harm self or others. Onset of symptoms was July 16, 2022. 13:56 Method Of Arrival: Ambulatory ll1 13:56 Acuity: SRAVAN 2 ll1 Triage Assessment: 17:00 General: Appears in no apparent distress. Behavior is calm, cooperative. kb3 17:22 Pain: Complains of pain in lower left third molar Pain does not radiate. Pain currently kb3 is 3 out of 10 on a pain scale. Quality of pain is described as throbbing. Historical: - Allergies: 13:56 Clindamycin; ll1 - PMHx: 13:56 Pneumothorax; ll1 - PSHx: 13:56 Right wrist cyst removal; ll1 - Immunization history:: Adult Immunizations up to date. - Social history:: Smoking status: Patient denies any tobacco usage or history of. Screenin:12 Abuse screen: Denies threats or abuse. Denies injuries from another. Nutritional kb3 screening: No deficits noted. Tuberculosis screening: No symptoms or risk factors identified. Fall Risk None identified. Assessment: 15:29 Reassessment: Patient appears in no apparent distress at this time. Patient is alert, vg1 oriented x 3, equal unlabored respirations, skin warm/dry/pink. Stated mouth pain Patient states feeling better. 17:13 Respiratory: Airway is patent Breath sounds are clear. kb3 17:23 Respiratory: Respiratory effort is even, unlabored. kb3 Vital Signs: 13:49 BP 141 / 84; Pulse 106; Resp 20 S; Temp 97.8(TE); Pulse Ox 99% on R/A; aa5 13:56 BP 141 / 84; Pulse 99; Resp 18; Temp 98.0; Pulse Ox 96% ; Pain 0/10; ll1 15:29 BP 135 / 72; Pulse 95; Resp 18; Pulse Ox 100% on R/A; vg1 17:12 BP 136 / 75; Pulse 97; Resp 20; Pulse Ox 98% ; kb3 ED Course: 13:48 Patient arrived in ED. as 13:49 Arm band placed on Patient placed in an exam room, on a stretcher. aa5 13:53 [facility] jl9 13:53 Nayeli Alvarez MD is Attending Physician. jl9 13:54 Elias Giron PA is PHCP. jl9 13:56 Moody Guzman, RN is Primary Nurse. ll1 13:57 Triage completed. aa5 13:58 Inserted saline lock: 22 gauge in right antecubital area, using aseptic technique. ll1 Blood collected. 15:51 Primary Nurse role handed off by Moody Guzman, RN vg1 15:51 Naida Escobar, RN is Primary Nurse. vg1 16:20 Jony Brewer DDS is Referral Physician. cp 17:12 Patient has correct armband on for positive identification. kb3 17:12 No provider procedures requiring assistance completed. IV discontinued, intact, kb3 bleeding controlled, No redness/swelling at site. Administered Medications: 13:55 CANCELLED (Physician Discretion): SOLU-Medrol (methylPREDNISolone sodium succinate) 125 cp mg IM once 13:55 CANCELLED (Physician Discretion): Benadryl (diphenhydrAMINE) 50 mg IM once cp 14:16 Drug: SOLU-Medrol (methylPrednisoLONE) 125 mg Route: IVP; Site: right antecubital; ll1 15:00 Follow up: Response: No adverse reaction; Pain is decreased kb3 14:16 Drug: EPINEPHrine 1mg/mL 1:1,000 0.2 ml Route: Sub-Q; Site: right lower abdomen; ll1 15:00 Follow up: Response: No adverse reaction kb3 14:16 Drug: Benadryl (diphenhydrAMINE) 50 mg Route: IVP; Site: right antecubital; ll1 15:00 Follow up: Response: No adverse reaction kb3 14:16 Drug: Pepcid (famotidine) 20 mg Route: IVP; Site: right antecubital; ll1 15:00 Follow up: Response: No adverse reaction kb3 14:16 Drug: NS 0.9% 1000 ml Route: IV; Rate: 1 bolus; Site: right antecubital; ll1 16:12 Follow up: IV Status: Completed infusion; IV Intake: 1000ml vg1 16:19 Drug: Ibuprofen 800 mg Route: PO; vg1 17:23 Follow up: Response: No adverse reaction; Pain is decreased kb3 16:19 Drug: Augmentin (Amoxicillin-Clavulanate) 875 mg Route: PO; vg1 17:23 Follow up: Response: No adverse reaction kb3 16:20 Drug: Hydrocodone-Acetaminophen (7.5 mg-325 mg) 1 tabs Route: PO; vg1 17:24 Follow up: Response: No adverse reaction; Pain is decreased kb3 Medication: 17:23 VIS not applicable for this client. kb3 Intake: 16:12 IV: 1000ml; Total: 1000ml. vg1 Outcome: 16:21 Discharge ordered by . gabino 17:12 Discharged to home ambulatory. kb3 17:12 Condition: stable 17:12 Discharge instructions given to patient, Instructed on discharge instructions, follow up and referral plans. medication usage, Demonstrated understanding of instructions, follow-up care, medications, Prescriptions given X 4. 17:23 Patient left the ED. kb3 Signatures: Ester Roe Audri, RN RN aa5 Elias Giron PA PA cp Garcia, Victoria, RN RN vg1 Moody Guzman RN RN ll1 Yared Mccrary Kelly, RN RN kb3
[2022-07-16 17:29] VITALS: TEMP 98
[2022-07-16 17:32] VITALS: BP 136/75; O2SAT 98
== END 2022-07-16 17:23 | disposition home or self-care (01) ==
LOC: ER 13:47
DX: K08.9 Disorder of teeth and supporting structures, unspecified (principal); Z91.018 Allergy to other foods
CPT/HCPCS: 96361; 96372; 96374; 96375; 99284; J0171; J1200; J2930; J7030

== ENCOUNTER 2022-11-09 10:25 | Emergency (ER) | payer SELFPAY ==
--- OUTSIDE RECORDS SUMMARY | 2022-11-09 10:32 | XMS REPORT | Continuity of Care Document ---
:[address] [facility] t Address [address] [place] [address] Care Team Providers Name Role Phone DR ARSLAN BALTAZAR Attending Clinician Unavailable Bertha Attending Clinician Unavailable DIANA BAILEY Attending Clinician Unavailable KATHARINA HIDALGO Attending Clinician Unavailable DR ARSLAN BALTAZAR Admitting Clinician Unavailable Bertha Admitting Clinician Unavailable Payers Payer Name Policy Type Policy Number Effective Date Expiration Date S alban SANCHEZ/ MAUREPAS [id number] Problems This patient has no known problems. Allergies, Adverse Reactions, Alerts Allergy Allergy Status Severity Reaction(s) Onset Inactive Treating Comm ents Source Name Type Date Date Clinician Clindamy DA Active Unknown [facility] Medications This patient has no known medications. Vital Signs Vital Name Observation Time Observation Value Comments Source Weight 2021-03-07 13:02:00 110 KG Height 2021-03-07 13:02:00 182.88 CM Procedures This patient has no known procedures. Encounters Start End Encounter Admission Attending Care Care Encounter Source Date/Time Date/Time Type Type Clinicians Facility Department ID 2021-03-07 2021-03-07 Outpatient E ARSLAN BALTAZAR [id number] 13[facility]45[facility] 2020-07-22 2020-07-22 Outpatient [facility] [id number] [place] 02:35:00 02:35:00 [id number] 2014-12-26 2014-12-26 Emergency ER UGOR, [facility] [id number] [place] 12:23:00 14:05:00 DIANA -[id number] [facility] 2014-12-15 2014-12-15 Emergency ER ROCKY, [facility] [id number] [place] 18:02:00 23:15:00 KATHARINA -[id number] [facility] Results This patient has no known results.
[2022-11-09 11:09] LABS: Absolute Lymphocytes (CBC) 1.5 K/uL (0.7-4.9); Hematocrit 45.6 % (39.6-49.0); MCV 85.5 fL (80-100); RBC Red Blood Cell Count 5.33 M/uL (4.33-5.43)
[2022-11-09 11:30] LABS: Bilirubin Direct 0.2 mg/dL (0-0.2); Bilirubin Total 0.8 mg/dL (0.2-1.0); Magnesium 2.3 mg/dL (1.6-2.4); Potassium 3.9 mmol/L (3.5-5.1); Protein, Total 7.3 g/dL (6.4-8.2); Troponin High Sensitivity 5.4 pg/mL (<58.9)
--- NOTE | 2022-11-09 11:42 | RAD REPORT ---
EXAM DESCRIPTION: RAD - Chest Single View - 11/09/2022 10:45 am CLINICAL HISTORY: CHEST PAIN Chest pain. COMPARISON: Chest Pa And Lat (2 Views) dated 01/22/2018; CHEST SINGLE VIEW dated 11/15/2009; CHEST SIN GLE VIEW dated 11/14/2009; CHEST SINGLE VIEW dated 11/12/2009 FINDINGS: Portable technique limits examination quality. The lungs are grossly clear. The heart is normal in size. No displaced fractures. IMPRESSION: No acute intrathoracic process suspected.
[2022-11-09 11:48] LABS: Protime INR 1.14
[2022-11-09] MEDS ORDERED: FENTANYL CITR 100 MCG/2 ML ONE (11:53)
--- NOTE | 2022-11-09 12:45 | RAD REPORT ---
EXAM DESCRIPTION: RAD - Ribs Right - 11/09/2022 11:54 am CLINICAL HISTORY: RIB PAIN - RIGHT COMPARISON: Chest Single View dated 11/09/2022 FINDINGS: No displaced rib fracture. No aggressive liver lesion.
[2022-11-09 14:49] VITALS: TEMP 97.8
[2022-11-09 14:57] VITALS: BP 130/86; O2SAT 99
--- NOTE | 2022-11-10 16:23 | EKG ---
Test Date: 2022-11-09 Test Time: 10:52:35 Budget Engineer: COLBY MEASUREMENT RESULTS: Intervals: Rate: 80 [place]: 146 QRSD: 96 QT: 374 QTc: 431 [place]: P: 50 AZ: 146 QRS: 86 T: 47 INTERPRETIVE STATEMENTS: Normal sinus rhythm Normal ECG Compared to ECG 01/22/2018 07:59:11 No significant changes Electronically Signed On 11-10-22 16:20:15 PERINATAL TECH by Lorenzo Randall
--- NOTE | 2022-11-25 15:26 | ER ---
Nurse's Notes [facility] Name: Nain Caballero Age: 32 yrs Sex: Male : 1990 Arrival Date: 11/09/2022 Time: 10:27 Bed 14 Private MD: Diagnosis: Costochondritis Presentation: 11/09 10:28 Chief complaint: Patient states: he started having right sided chest pain Monday ap3 11/06/22 after working out. patient states that the pain is exaggerated when breathing and worse when he takes a deep breath. Coronavirus screen: At this time, the client does not indicate any symptoms associated with coronavirus-19. Ebola Screen: No symptoms or risks identified at this time. Initial Sepsis Screen: Does the patient meet any 2 criteria? No. Patient's initial sepsis screen is negative. Does the patient have a suspected source of infection? No. Patient's initial sepsis screen is negative. Risk Assessment: Do you want to hurt yourself or someone else? Patient reports no desire to harm self or others. Onset of symptoms was November 06, 2022. 10:28 Method Of Arrival: Ambulatory ap3 10:28 Acuity: SRAVAN 3 ap3 Triage Assessment: 10:30 General: Appears uncomfortable, Behavior is calm, cooperative. Pain: Complains of pain ap3 in right lateral anterior chest Pain currently is 6 out of 10 on a pain scale. Pain began 11/06/2022. Neuro: Level of Consciousness is awake, alert, obeys commands, Oriented to person, place, time, situation. Cardiovascular: Reports chest pain, Patient's skin is warm and dry. Respiratory: Airway is patent Respiratory effort is even, unlabored, Respiratory pattern is regular, symmetrical. Historical: - Allergies: 10:30 Clindamycin; ap3 - Home Meds: 10:30 None [Active]; ap3 - PMHx: 10:30 Pneumothorax; ap3 - PSHx: 10:30 Right wrist cyst removal; ap3 - Immunization history:: Client reports having NOT received the Covid vaccine. - Social history:: Smoking status: Patient denies any tobacco usage or history of. Screenin:31 [facility] ED Fall Risk Assessment (Adult) History of falling in the last 3 months, ap3 including since admission No falls in past 3 months (0 pts). Abuse screen: Denies threats or abuse. Nutritional screening: No deficits noted. Tuberculosis screening: No symptoms or risk factors identified. Assessment: 10:32 Pain: Pain does not radiate. ap3 10:45 General: Appears in no apparent distress. uncomfortable, Behavior is calm, cooperative, ko1 appropriate for age. Pain: Complains of pain in chest and right lateral anterior chest. Neuro: No deficits noted. Cardiovascular: Reports chest pain. Respiratory: Reports pain with respiration. GI: No deficits noted. : No deficits noted. EENT: No deficits noted. Derm: No deficits noted. Musculoskeletal: No deficits noted. 13:23 Pain: Denies pain. ko1 Vital Signs: 10:28 BP 125 / 88; Pulse 95; Resp 19; Temp 97.8(O); Pulse Ox 100% ; Weight 102.06 kg; Height ap3 6 ft. 1 in. ; Pain 8/10; 10:45 BP 131 / 60; Pulse 88; Resp 16; Pulse Ox 99% on R/A; ko1 11:00 BP 131 / 61; Pulse 79; Resp 16; Pulse Ox 100% on Non-rebreather mask; ko1 13:38 BP 130 / 86; Pulse 82; Resp 18; Pulse Ox 99% ; ko1 10:28 Body Mass Index 29.68 (102.06 kg, 185.42 cm) ap3 10:28 Pain Scale: Adult ap3 ED Course: 10:27 Patient arrived in ED. mr 10:30 Triage completed. ap3 10:31 Rima Waller FNP-C is PHCP. snw 10:31 Carrington Guerra DO is Attending Physician. snw 10:31 Arm band placed on right wrist. ap3 10:32 Patient maintains SpO2 saturation greater than 95% on room air. ap3 10:34 Dayna Muñoz, RN is Primary Nurse. ko1 10:47 XRAY Chest (1 view) In Process Unspecified. EDMS 10:56 Basic Metabolic Panel Sent. ko1 10:56 CBC with Diff Sent. ko1 10:56 LFT's Sent. ko1 10:56 Magnesium Sent. ko1 10:56 NT PRO-BNP Sent. ko1 10:56 PT-INR Sent. ko1 10:56 Troponin HS Sent. ko1 11:00 Patient has correct armband on for positive identification. Bed in low position. Call ko1 light in reach. Client placed on continuous cardiac and pulse oximetry monitoring. NIBP monitoring applied. classroom monitor on. 11:00 Inserted saline lock: 20 gauge in right antecubital area, using aseptic technique. ko1 Blood collected. 11:56 Ribs Right XRAY In Process Unspecified. EDMS 13:23 No provider procedures requiring assistance completed. IV discontinued, intact, ko1 bleeding controlled, No redness/swelling at site. Pressure dressing applied. Administered Medications: 11:50 Drug: fentaNYL (PF) IVP 50 mcg Route: IVP; Site: right antecubital; ko1 Medication: 11:00 VIS not applicable for this client. ko1 Outcome: 12:54 Discharge ordered by MD. snw 13:38 Discharged to home ambulatory, with family. ko1 13:38 Condition: improved 13:38 Discharge instructions given to patient, family, Instructed on discharge instructions, follow up and referral plans. medication usage, Demonstrated understanding of instructions, follow-up care, medications, Prescriptions given X 2. 13:39 Patient left the ED. ko1 Signatures: Dispatcher [employer] EDMS Rima Waller, CHIEF ACCOUNTANT-C CHIEF ACCOUNTANT-Csnw Gillian Leon Brenda Rosa, RN RN ap3 Dayna Muñoz, RN RN ko1 Corrections: (The following items were deleted from the chart) 11:12 11:02 CREATINE PHOSPHOKINASE+C.LAB.BRZ drawn and sent. ko1 EDMS
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
== END 2022-11-09 13:39 | disposition home or self-care (01) ==
LOC: ER 10:25
DX: M94.0 Chondrocostal junction syndrome [Tietze] (principal); Z88.3 Allergy status to other anti-infective agents
CPT/HCPCS: 36415; 71045; 80048; 80076; 82550; 83735; 83880; 84484; 85025; 85610; 93005; 96374; 99285; J3010

== ENCOUNTER 2023-01-14 08:02 | Emergency (ER) | payer SELFPAY ==
--- OUTSIDE RECORDS SUMMARY | 2023-01-14 08:05 | XMS REPORT | Continuity of Care Document ---
:1990 Author Organization [facility] t Address [address] [place] [address] Care Team Providers Name Role Phone DR ARSLAN BALTAZAR Attending Clinician Unavailable Bertha Attending Clinician Unavailable DIANA BAILEY Attending Clinician Unavailable KATHARINA HIDALGO Attending Clinician Unavailable DR ARSLAN BALTAZAR Admitting Clinician Unavailable Bertha Admitting Clinician Unavailable Payers Payer Name Policy Type Policy Number Effective Date Expiration Date S alban SANCHEZ/ [place] [id number] Problems This patient has no known problems. Allergies, Adverse Reactions, Alerts Allergy Allergy Status Severity Reaction(s) Onset Inactive Treating Comm ents Source Name Type Date Date Clinician Clindamy DA Active Unknown [facility] Medications This patient has no known medications. Vital Signs Vital Name Observation Time Observation Value Comments Source Height 2021-03-07 13:02:00 182.88 CM Weight 2021-03-07 13:02:00 110 KG Procedures This patient has no known procedures. Encounters Start End Encounter Admission Attending Care Care Encounter Source Date/Time Date/Time Type Type Clinicians Facility Department ID 2021-03-07 2021-03-07 Outpatient E ARSLAN BALTAZAR [facility] [id number] [facility] 12:51:00 13:45:00 [facility] 2020-07-22 2020-07-22 Outpatient Shield [facility]UEL [facility] [id number] [place] 02:35:00 02:35:00 [id number] 2014-12-26 2014-12-26 Emergency ER UGOR, [facility] [id number] [place] 12:23:00 14:05:00 DIANA [id number] Pending sale to [facility] 2014-12-15 2014-12-15 Emergency ER ROCKY, [facility] [id number] [place] 18:02:00 23:15:00 KATHARINA -[id number] Pending sale to [facility] Results This patient has no known results.
[2023-01-14] MEDS ORDERED: LIDOCAINE 1% MPF 5 ML VIAL ONE ×2 (08:41→08:43)
[2023-01-14] MEDS ORDERED: BUPIVACAINE 0.5% PF 10 ML VIAL ONE (08:41)
[2023-01-14] MEDS ORDERED: HYDROCODONE/APAP 7.5/325 MG TAB ONE (08:41)
[2023-01-14] MEDS ORDERED: IBUPROFEN 400 MG TAB ONE (08:41)
--- NOTE | 2023-01-14 09:15 | ER ---
Nurse's Notes [facility] Name: Nain Caballero Age: 32 yrs Sex: Male : 1990 Arrival Date: 01/14/2023 Time: 08:02 Bed 15 Private MD: Diagnosis: Ingrowing nail-right great toe Presentation: 01/14 08:13 Chief complaint: Patient states: "my right big toe has been bothering me for a while aa5 and it's been getting worse over the last 3 days". Coronavirus screen: At this time, the client does not indicate any symptoms associated with coronavirus-19. Ebola Screen: Patient denies travel to an Ebola-affected area in the 21 days before illness onset. Initial Sepsis Screen: Does the patient meet any 2 criteria? No. Patient's initial sepsis screen is negative. Does the patient have a suspected source of infection? Yes:. Risk Assessment: Do you want to hurt yourself or someone else? Patient reports no desire to harm self or others. Onset of symptoms was January 2023. 08:13 Acuity: SRAVAN 4 aa5 08:13 Method Of Arrival: Ambulatory aa5 Historical: - Allergies: 08:13 Clindamycin; aa5 - PMHx: 08:13 Pneumothorax; aa5 - PSHx: 08:13 Right wrist cyst removal; aa5 - Immunization history:: Adult Immunizations unknown. - Social history:: Smoking status: Patient denies any tobacco usage or history of. Screenin:16 [facility] ED Fall Risk Assessment (Adult) History of falling in the last 3 months, kc6 including since admission No falls in past 3 months (0 pts) Confusion or Disorientation No (0 pts) Intoxicated or Sedated No (0 pts) Impaired Gait No (0 pts) Mobility Assist Device Used No (0 pt) Altered Elimination No (0 pt) Score/Fall Risk Level 0 - 2 = Low Risk Oriented to surroundings, Maintained a safe environment, Educated pt \\T\\ family on fall prevention, incl call for assistance when getting out of bed, Assessed \\T\\ reinforced patient's understanding of fall precautions, Hourly rounding (assess needs \\T\\ fall precautionary measures) done. Abuse screen: Denies threats or abuse. Denies injuries from another. Nutritional screening: No deficits noted. Tuberculosis screening: No symptoms or risk factors identified. Assessment: 08:15 General: Appears in no apparent distress. comfortable, Behavior is calm, cooperative, kc6 appropriate for age. Pain: Complains of pain in rigth great toe. Neuro: Mao Agitation-Sedation Scale (RASS): 0 - Alert and Calm Level of Consciousness is awake, alert, obeys commands, Oriented to person, place, time, situation, Appropriate for age. Cardiovascular: Capillary refill < 3 seconds. Respiratory: Airway is patent Trachea midline Respiratory effort is even, unlabored, Respiratory pattern is regular, symmetrical. GI: No signs and/or symptoms were reported involving the gastrointestinal system. : No signs and/or symptoms were reported regarding the genitourinary system. EENT: No signs and/or symptoms were reported regarding the EENT system. Derm: No signs and/or symptoms reported regarding the dermatologic system. Skin is intact, Skin is pink, warm \\T\\ dry. Musculoskeletal: No signs and/or symptoms reported regarding the musculoskeletal system. Circulation, motion, and sensation intact. Capillary refill < 3 seconds, Range of motion: intact in all extremities. 09:15 Reassessment: Patient appears in no apparent distress at this time. No changes from kc6 previously documented assessment. Patient and/or family updated on plan of care and expected duration. Pain level reassessed. Patient is alert, oriented x 3, equal unlabored respirations, skin warm/dry/pink. Vital Signs: 08:13 BP 139 / 80; Pulse 86; Resp 16 S; Temp 98.2(TE); Pulse Ox 99% on R/A; Weight 108.86 kg aa5 (R); Height 6 ft. 1 in. (R); 08:48 BP 126 / 85; Pulse 90; Resp 18 S; Pulse Ox 100% on R/A; kc6 08:13 Body Mass Index 31.66 (108.86 kg, 185.42 cm) aa5 ED Course: 08:06 Patient arrived in ED. ts1 08:09 Elias Giron PA is PHCP. cp 08:09 Josue Hilliard MD is Attending Physician. cp 08:13 Arm band placed on. aa5 08:15 Triage completed. aa5 08:16 Bhavna Flores, TOBIAS is Primary Nurse. kc6 08:16 Patient has correct armband on for positive identification. Bed in low position. Call kc6 light in reach. Side rails up X 1. 09:31 No provider procedures requiring assistance completed. Patient did not have IV access kc6 during this emergency room visit. Administered Medications: 08:40 Drug: Lidocaine Infiltration (1 %) 10 ml {Note: to bedside.} Volume: 5 ml; Route: kc6 Infiltration; 09:28 Follow up: Response: No adverse reaction kc6 08:40 Drug: Bupivacaine Infiltration (0.5 %) 10 ml {Note: to bedside.} Volume: 10 ml; Route: kc6 Infiltration; 09:30 Follow up: Response: No adverse reaction kc6 08:40 Drug: Ibuprofen PO 800 mg Route: PO; kc6 09:30 Follow up: Response: No adverse reaction kc6 08:40 Drug: Hydrocodone-Acetaminophen PO (7.5 mg-325 mg) 1 tabs Route: PO; kc6 09:30 Follow up: Response: No adverse reaction; Pain is decreased; RASS: Alert and Calm (0) kc6 Medication: 09:31 VIS not applicable for this client. kc6 Outcome: 09:15 Discharge ordered by MD. lloyd 09:31 Discharged to home ambulatory. kc6 09:31 Condition: improved 09:31 Discharge instructions given to patient, Instructed on discharge instructions, follow up and referral plans. medication usage, Demonstrated understanding of instructions, follow-up care, medications, Prescriptions given X 3. 09:31 Patient left the ED. kc6 Signatures: Natalie Echavarria, RN RN aa5 Elias Giron PA PA cp Campbell, Kaitlyn, RN RN kc6 Ramonita Good PAS PAS ts1
--- NOTE | 2023-01-14 09:15 | EDPHYS ---
Physician Documentation [facility] Name: Nain Caballero Age: 32 yrs Sex: Male : 1990 Arrival Date: 01/14/2023 Time: 08:02 Bed 15 Private MD: ED Physician Josue Hilliard HPI: 01/14 08:30 This 32 yrs old Male presents to ER via Ambulatory with complaints of Toe Pain. cp 08:30 The patient presents with pain, that is acute. The complaints affect the right great cp toe. 08:30 Context: ingrown nail. Onset: The symptoms/episode began/occurred gradually, and became cp worse 3 day(s) ago. Associated signs and symptoms: The patient has no apparent associated signs or symptoms, Pertinent negatives: fever, numbness, injury. Severity of symptoms: in the emergency department the symptoms are actually worse, moderately. Historical: - Allergies: 08:13 Clindamycin; aa5 - PMHx: 08:13 Pneumothorax; aa5 - PSHx: 08:13 Right wrist cyst removal; aa5 - Immunization history:: Adult Immunizations unknown. - Social history:: Smoking status: Patient denies any tobacco usage or history of. ROS: 08:33 MS/extremity: Positive for erythema, pain, swelling, tenderness, of the medial side of cp nail of right great toe. 08:33 Constitutional: Negative for body aches, chills, fever, poor PO intake. cp 08:33 Respiratory: Negative for cough, shortness of breath, wheezing. cp 08:33 Abdomen/GI: Negative for abdominal pain, nausea, vomiting, and diarrhea. 08:33 Back: Negative for pain at rest, pain with movement. 08:33 Neuro: Negative for numbness, tingling. cp 08:33 All other systems are negative. Exam: 08:37 Constitutional: The patient appears in no acute distress, alert, awake, non-toxic, well cp developed, well nourished, uncomfortable. 08:37 Head/Face: Normocephalic, atraumatic. cp 08:37 Chest/axilla: Inspection: normal. 08:37 Cardiovascular: Rate: normal. 08:37 Respiratory: the patient does not display signs of respiratory distress, Respirations: normal, no use of accessory muscles, no retractions, labored breathing, is not present. 08:37 Abdomen/GI: Exam negative for discomfort, distension, guarding, Inspection: abdomen appears normal. 08:37 Back: pain, is absent, ROM is normal. 08:37 Musculoskeletal/extremity: Extremities: grossly normal except: noted in the right great toe: pain, tenderness, swelling and erythema noted medial side of nail of right great toe, Pulses: noted to be 2+ in the left dorsalis pedis artery, Perfusion: the extremity is normally perfused throughout. Vital Signs: 08:13 BP 139 / 80; Pulse 86; Resp 16 S; Temp 98.2(TE); Pulse Ox 99% on R/A; Weight 108.86 kg aa5 (R); Height 6 ft. 1 in. (R); 08:48 BP 126 / 85; Pulse 90; Resp 18 S; Pulse Ox 100% on R/A; kc6 08:13 Body Mass Index 31.66 (108.86 kg, 185.42 cm) aa5 Procedures: 09:10 Performed Removal Ingrown Nail. Medial side digital block performed after injecting 6 cp ccs of 1% lidocaine w/o epi and 0.5% Marcaine. Good anesthesia obtained. Using pair hemostats, medial side nail of right great toe removed. Area dressed with bacitracin, 4 by 4s and Coban. Patient tolerated procedure well. MDM: 08:16 Patient medically screened. cp 09:15 Data reviewed: vital signs, nurses notes. cp 09:15 Differential diagnosis: cellulitis, abscess. Test considered but Not performed: X-ray: cp right foot. Counseling: I had a detailed discussion with the patient and/or guardian regarding: the historical points, exam findings, and any diagnostic results supporting the discharge/admit diagnosis, to return to the emergency department if symptoms worsen or persist or if there are any questions or concerns that arise at home. Response to treatment: the patient's symptoms have markedly improved after treatment, and as a result, I will discharge patient. 01/14 08:23 Order name: I\T\D Setup; Complete Time: 08:40 cp Administered Medications: 08:40 Drug: Lidocaine Infiltration (1 %) 10 ml {Note: to bedside.} Volume: 5 ml; Route: kc6 Infiltration; 09:28 Follow up: Response: No adverse reaction [facility] 08:40 Drug: Bupivacaine Infiltration (0.5 %) 10 ml {Note: to bedside.} Volume: 10 ml; Route: kc6 Infiltration; 09:30 Follow up: Response: No adverse reaction kc6 08:40 Drug: Ibuprofen PO 800 mg Route: PO; kc6 09:30 Follow up: Response: No adverse reaction kc6 08:40 Drug: Hydrocodone-Acetaminophen PO (7.5 mg-325 mg) 1 tabs Route: PO; kc6 09:30 Follow up: Response: No adverse reaction; Pain is decreased; RASS: Alert and Calm (0) kc6 Disposition Summary: 01/14/23 09:15 Discharge Ordered Location: Home cp Problem: new cp Symptoms: have improved cp Condition: Stable cp Diagnosis - Ingrowing nail - right great toe cp Followup: cp - With: Private Physician - When: 2 - 3 days - Reason: Recheck today's complaints Discharge Instructions: - Discharge Summary Sheet cp - Ingrown Toenail cp Forms: - Medication Reconciliation Form cp - Thank You Letter cp - Antibiotic Education cp - Prescription Opioid Use cp - Work release form kc6 Prescriptions: - Ibuprofen 800 mg Oral Tablet - take 1 tablet by ORAL route every 8 hours As needed take with food; 30 tablet; cp Refills: 0, Product Selection Permitted - Tramadol 50 mg Oral Tablet - take 1 tablet by ORAL route every 8 hours as needed; 12 tablet; Refills: 0, cp Product Selection Permitted - Bactrim DS 800-160 mg Oral Tablet - take 1 tablet by ORAL route every 12 hours for 7 days; 14 tablet; Refills: 0, cp Product Selection Permitted Signatures: Natalie Echavarria RN RN aa5 Elias Giron PA PA cp Bhavna Flores RN RN kc6 Corrections: (The following items were deleted from the chart) 01/15 08:46 01/14 08:30 The complaints affect the left great toe, cp cp 01/15 08:48 01/14 08:37 Musculoskeletal/extremity: Extremities: grossly normal except: noted in the cp left great toe: pain, tenderness, swelling and erythema noted lateral side of nail of left great toe, Pulses: noted to be 2+ in the left dorsalis pedis artery, Perfusion: the extremity is normally perfused throughout, cp
[2023-01-14 09:41] VITALS: TEMP 98.2
[2023-01-14 09:43] VITALS: BP 126/85; O2SAT 100
== END 2023-01-14 09:31 | disposition home or self-care (01) ==
LOC: ER 08:02
PROC: 0HBRXZZ Excision of Toe Nail, External Approach (ICD-10-PCS; principal; 2023-01-14)
DX: L60.0 Ingrowing nail (principal)
CPT/HCPCS: 99283; J2001